=== PATIENT | male | born 1930 | race Caucasian/White ===

== ENCOUNTER 2016-12-23 10:43 | Inpatient (IN) | payer MEDICARE, OTHER ==
[~2016-12-23] VITALS: Ht 157.5 cm; Wt 65.8 kg
[~2016-12-23 10:43] MED LIST: ASPI325T32 PO; BENA40TA54 PO; CRES10 PO; OMEG10006 PO; OMEP40CA6 PO
[2016-12-23] MEDS ORDERED: CEFEPIME 2GM/50 ML (PMX) 50 ML IVPB STA (11:34)
[2016-12-23] MEDS ORDERED: ACETAMINOPHEN 325 MG TAB PO STA (11:34)
[2016-12-23] MEDS ORDERED: SODIUM CHLORIDE 0.9% 1L BAG IV* STA (11:34)
[2016-12-23] MEDS ORDERED: VANCOMYCIN 1 GM (PMX) 250 ML IVPB ONE (12:00)
[2016-12-23] MEDS ORDERED: ASPI-664 PO (12:17)
[2016-12-23] MEDS ORDERED: METF1000 PO (12:18)
[2016-12-23] MEDS ORDERED: GLIP-95 PO (12:18)
[2016-12-23] MEDS ORDERED: BENA40TA41 PO (12:18)
[2016-12-23] MEDS ORDERED: TAMS0.4C2 PO (12:18)
[2016-12-23] MEDS ORDERED: OMEP20CA16 PO (12:19)
[2016-12-23] MEDS ORDERED: MECL12.574 PO (12:19)
[2016-12-23 12:25] LABS: BASOPHILS % 0.3 % (0.0-2.0); EOSINOPHILS # 0.1 10^3/ul (0.0-0.5); EOSINOPHILS % 0.4 % (0.0-7.0); HEMATOCRIT 33.6 % (42.0-52.0); HEMOGLOBIN 10.9 g/dl (14.0-18.0); LYMPHOCYTES # 1.1 10^3/ul (0.8-2.9); LYMPHOCYTES % 9.4 % (15.0-51.0); MEAN CORPUSCULAR HEMOGLOBIN 30.2 pg (29.0-33.0); MEAN CORPUSCULAR HGB CONC 32.4 g/dl (32.0-37.0); MEAN CORPUSCULAR VOLUME 93.1 fl (82.0-101.0); MEAN PLATELET VOLUME 9.5 fl (7.4-10.4); MONOCYTE # 1.1 10^3/ul (0.3-0.9); MONOCYTES % 9.6 % (0.0-11.0); NEUTROPHILS % 79.7 % (39.0-77.0); PLATELET COUNT 271 10^3/UL (140-415); RED BLOOD COUNT 3.61 10^6/ul (4.70-6.10); RED CELL DISTRIBUTION WIDTH 13.9 % (11.5-14.5); WHITE BLOOD COUNT 11.5 10^3/ul (4.8-10.8)
[2016-12-23] MEDS ORDERED: ACETAMINOPHEN 325 MG TAB PO PRN (12:30)
[2016-12-23] MEDS ORDERED: ONDANSETRON 4 MG INJ IV PRN ×2 (12:30→17:00)
--- NOTE | 2016-12-23 12:33 | RADRPT ---
PROCEDURE: Chest Radiograph. CLINICAL INDICATION: Sepsis TECHNIQUE: Single frontal chest radiograph. COMPARISON: None available FINDINGS: The patient is moderately rotated. Heart size is poorly evaluated. The cardiomediastinal silhouett e is grossly within normal limits. Lung volumes are decreased and there is basilar atelectasis. No infiltrate or effusion is seen. The bones are intact. IMPRESSION: 1. Low lung volumes with basilar atelectasis. 2. No evidence of acute cardiopulmonary disease. RPTAT: KK .Mark Vergara MD, MD Date Time Electronically viewed and signed by .Mark Vergara MD, on 12/23/2016 12:33 .B/
[2016-12-23 12:40] LABS: ALANINE AMINOTRANSFERASE 18 IU/L (13-69); ALBUMIN 4.4 g/dl (3.3-4.9); ALBUMIN/GLOBULIN RATIO 1.04; ALKALINE PHOSPHATASE 87 IU/L (42-121); ANION GAP 23 (8-16); ASPARTATE AMINO TRANSFERASE 23 IU/L (15-46); BILIRUBIN,INDIRECT 0.5 mg/dl (0-1.1); BILIRUBIN,TOTAL 0.5 mg/dl (0.2-1.3); BLOOD UREA NITROGEN 32 mg/dl (7-20); CALCIUM 9.5 mg/dl (8.4-10.2); CARBON DIOXIDE 18 mmol/L (21-31); CHLORIDE 105 mmol/L (97-110); CREATININE 1.94 mg/dl (0.61-1.24); GLUCOSE 365 mg/dl (70-220); POTASSIUM 5.1 mmol/L (3.5-5.1); SODIUM 141 mmol/L (135-144); TOTAL PROTEIN 8.6 g/dl (6.1-8.1)
[2016-12-23 12:43] LABS: INR 1.12; PARTIAL THROMBOPLASTIN TIME 28.5 Sec (25.0-35.0); PROTIME 14.4 Sec (12.2-14.2); PT RATIO 1.1
[2016-12-23 12:54] LABS: TROPONIN-I < 0.012 ng/ml (0.00-0.12)
--- NOTE | 2016-12-23 14:23 | ERA ---
ER Documentation Chief Complaint Date/Time DATE: 12/23/16 TIME: 14:19 Chief Complaint Complains of weakness and fever x 2 days HPI Patient is a 86-year-old male with hypertension and diabetes who presents with fever. He was brought in by his . He has chills all over his body and "cannot walk". This has been there for the past 3 days. He went to a clinic 2 weeks ago and was told that he had an infection and was given 2 injections. He has left hand and forearm redness and swelling. He does not know the name of his primary doctor. ROS All systems reviewed and are negative except as per history of present illness. Medications Home Meds Reported Medications Meclizine Hcl* (Antivert*) 12.5 Mg Tab, 12.5 MG PO Q8H Y for NAUSEA AND/OR VOMITING, #30 TAB 12/23/16 Omeprazole* (Omeprazole*) 20 Mg Capsule.dr, 20 MG PO DAILY, #30 CAP 12/23/16 Glipizide* (Glipizide*) 10 Mg Tablet, 10 MG PO BID, TAB 12/23/16 Benazepril Hcl* (Benazepril Hcl*) 40 Mg Tablet, 40 MG PO DAILY, #30 TAB 12/23/16 Tamsulosin Hcl* (Tamsulosin Hcl*) 0.4 Mg Cap.er.24h, 0.4 MG PO HS, CAP 12/23/16 Metformin Hcl* (Metformin Hcl*) 1,000 Mg Tablet, 1000 MG PO WITH BREAKFAST DINNE , #30 TAB 12/23/16 Aspirin (Low Dose Aspirin) 81 Mg Tablet.dr, 81 MG PO DAILY, #30 TAB 12/23/16 Discontinued Reported Medications Aspirin* (Aspirin* EC) 325 Mg Tab, 81 MG PO DAILY 05/28/13 Rosuvastatin Calcium* (Crestor*) 10 Mg Tablet, 10 MG PO HS 05/28/13 Omeprazole* (Omeprazole*) 40 Mg Capsule.dr, 40 MG PO DAILY 05/28/13 [place]-3 Fatty Acids (OMEGA-3) 1,000 Mg Capsule, 1000 MG PO BID 05/28/13 Benazepril Hcl* (Lotensin*) 40 Mg Tablet, 5 MG PO DAILY 05/28/13 Allergies Allergies: Coded Allergies: No Known Allergy (Unverified , 12/23/16) PMhx/Soc History of Surgery: Yes Anesthesia Reaction: No Hx Neurological Disorder: No Hx Respiratory Disorders: No Hx Cardiac Disorders: Yes (HTN) Hx Psychiatric Problems: No Hx Miscellaneous Medical Probl: Yes (ARTHRITIS,HYPERCHOLESTEROLEMIA) Hx Alcohol Use: No Hx Substance Use: No Hx Tobacco Use: No FmHx Family History: diabetes Physical Exam Vitals Vital Signs Date Time Temp Pulse Resp B/P Pulse Ox O2 Delivery O2 Flow Rate FiO2 12/23/16 14:13 101.4 99 19 164/67 99 Room Air 12/23/16 12:07 Nasal Cannula 2 12/23/16 10:57 100.7 111 20 133/68 99 Physical Exam Const: Obvious Reiger's Head: Atraumatic Eyes: Normal Conjunctiva ENT: Normal External Ears, Nose and Mouth. Neck: Full range of motion..~ No meningismus. Resp: Clear to auscultation bilaterally Cardio: Tachycardic rate without murmur Abd: Soft, non tender, non distended. Normal bowel sounds Skin: Cellulitis of the left wrist and forearm without abscess formation Back: No midline or flank tenderness Ext: No cyanosis, or edema Neur: Awake and alert, Tremulousness diffusely with rigors Psych: Normal Mood and Affect Result Diagram: 12/23/16 1205 12/23/16 1205 Results 24 hrs Laboratory Tests Test 12/23/16 12:05 White Blood Count 11.510^3/ul Red Blood Count 3.6110^6/ul Hemoglobin 10.9g/dl Hematocrit 33.6% Mean Corpuscular Volume 93.1fl Mean Corpuscular Hemoglobin 30.2pg Mean Corpuscular Hemoglobin Concent 32.4g/dl Red Cell Distribution Width 13.9% Platelet Count 48407^3/UL Mean Platelet Volume 9.5fl Neutrophils % 79.7% Lymphocytes % 9.4% Monocytes % 9.6% Eosinophils % 0.4% Basophils % 0.3% Nucleated Red Blood Cells % 0.0/100WBC Neutrophils # (Manual) 9.210^3/ul Lymphocytes # 1.110^3/ul Monocytes # 1.110^3/ul Eosinophils # 0.110^3/ul Basophils # 0.010^3/ul Nucleated Red Blood Cells # 0.010^3/ul Prothrombin Time 14.4Sec Prothrombin Time Ratio 1.1 INR International Normalized Ratio 1.12 Activated Partial Thromboplast Time 28.5Sec Sodium Level 141mmol/L Potassium Level 5.1mmol/L Chloride Level 105mmol/L Carbon Dioxide Level 18mmol/L Anion Gap 23 Blood Urea Nitrogen 32mg/dl Creatinine 1.94mg/dl Glucose Level 365mg/dl Lactic Acid Level 4.9mmol/L Calcium Level 9.5mg/dl Total Bilirubin 0.5mg/dl Direct Bilirubin 0.00mg/dl Indirect Bilirubin 0.5mg/dl Aspartate Amino Transf (AST/SGOT) 23IU/L Alanine Aminotransferase (ALT/SGPT) 18IU/L Alkaline Phosphatase 87IU/L Troponin I < 0.012ng/ml Total Protein 8.6g/dl Albumin 4.4g/dl Globulin 4.20g/dl Albumin/Globulin Ratio 1.04 Current Medications Medications (Trade) Dose Ordered Sig/Chris Route PRN Reason Start Time Stop Time Status Last Admin Dose Admin Sodium Chloride (NS) 1,800 ml BOLUS OVER 2 HOURS STAT IV* 12/23/16 11:34 12/23/16 11:35 DC 12/23/16 12:27 Acetaminophen 650 mg 650 mg ONCE STAT PO 12/23/16 11:34 12/23/16 11:35 DC 12/23/16 12:24 Cefepime HCl 50 ml @ 100 mls/hr ONCE STAT IVPB 12/23/16 11:34 12/23/16 12:03 DC 12/23/16 12:24 Vancomycin HCl (Vancocin) 250 ml @ 125 mls/hr ONCE ONCE IVPB 12/23/16 12:00 12/23/16 13:59 DC 12/23/16 12:42 Ondansetron HCl (Zofran Inj) 4 mg BRIDGE ORDER PRN IV NAUSEA AND/OR VOMITING 12/23/16 12:30 12/24/16 12:29 Acetaminophen (Tylenol Tab) 650 mg ER BRIDGE PRN PO MILD PAIN/FEVER 12/23/16 12:30 12/24/16 12:29 Procedures/MDM EKG read by me: Rate/Rhythm: Tachycardia at a rate of 105 Intervals: Normal Impression: Tachycardia without ST elevations Chest x-ray shows no pneumonia or pneumothorax per radiology. Admit MDM: Patient's infectious symptoms have not stabilized and the patient is at risk of rapid decompensation. The patient will be admitted for careful hydration, antibiotic therapy, and infectious source control. Severe Sepsis criteria: Infectious source: Cellulitis End organ damage indicated by: Lactate greater than 2 Sepsis Management: Time of recognition of sepsis: Upon arrival Within 3 hours of recognition: Blood cultures x 2 before broad-spectrum antibiotics: [Yes] 30 ml/kg NS bolus [Completed] Initial lactate 4.9 Repeat lactate pending Time of recognition of septic shock: 1205 Septic Shock Assessment: Any lactic acid > 4.0 yes Persistent hypotension (SBP < 90 or 40 mmHg drop, MAP < 65) despite 30 mL/kg IV fluid bolus [No] Volume Re-assessment for Septic Shock (post 30 ml/kg bolus): Temp 101.4, BP 164/67, HR 99, RR 19, Pox 99% Heart [Regular rate & rhythm] Lungs [No crackles] Skin redness left wrist and forearm Cap Refill [Less than 2 seconds] Peripheral pulses [Radially present] Persistent Hypotension Treatment: Comfort care [No] Central line [Not Required] Vasopressor started [Not required] I considered further perfusion assessment with CVP measurement, SCVO2, bedside ultrasound volume assessment, passive leg raise, trial of further fluid bolus. And proceeded with [30 ml/kg fluid bolus of NSS, broad spectrum antibiotics, and admission.] Accepting Care Team Current data and ongoing care discussed. Admitting Physician: Dr. Pollack Asphalt Paving Supervisor(s): [None] Outstanding Data: Culture results and repeat lactic acid Critical Care: Critical care time 35 minutes excluding all billable procedures Emergent fluid management while maintaining close respiratory support. Provision of immediate and broad-spectrum antibiotic therapy. Simultaneous assessment for possible sources in order to direct targeted therapy. Consideration for invasive and chemical support to prevent cardiopulmonary collapse. Departure Diagnosis: Primary Impression: Septic shock Additional Impressions: Acute weakness Cellulitis Qualified Code: L03.114 - Cellulitis of left upper extremity Sepsis Qualified Code: A41.9 - Sepsis, due to unspecified organism Condition: BRETT Bear MD Dec 23, 2016 14:23
[2016-12-23] MEDS ORDERED: IBUPROFEN 800 MG TAB PO ONE (14:30)
[2016-12-23 15:46] LABS: ADD UMIC YES; UR ASCORBIC ACID NEGATIVE (NEGATIVE); UR BACTERIA FEW /HPF (NONE SEEN); UR BILIRUBIN (Dip) NEGATIVE (NEGATIVE); UR BLOOD (Dip) 1+ mg/dL (NEGATIVE); UR CLARITY CLEAR (CLEAR); UR COLOR YELLOW (YELLOW); UR GLUCOSE (Dip) 2+ mg/dL (NEGATIVE); UR KETONES (Dip) NEGATIVE (NEGATIVE); UR LEUKOCYTE ESTERASE (Dip) NEGATIVE Leu/ul (NEGATIVE); UR NITRITE (Dip) NEGATIVE (NEGATIVE); UR RBC 2 /HPF (0-5); UR SPECIFIC GRAVITY (Dip) 1.014 (1.003-1.030); UR TOTAL PROTEIN (Dip) NEGATIVE (NEGATIVE); UR UROBILINOGEN (Dip) NEGATIVE (NEGATIVE)
--- NOTE | 2016-12-23 16:48 | HP ---
Date/Time of Note Date/Time of Note DATE: 12/23/16 TIME: 16:43 Assessment/Plan VTE Prophylaxis VTE Prophylaxis Intervention: SCD's Assessment/Plan Chief Complaint/Hosp Course 1. Sepsis with lactic acidosis secondary to cellulitis of the left wrist Vancomycin IV ID consultation 2. CKD Monitor 3. Hypertension Resume home meds 4. Diabetes Scheduled insulin and sliding scale 5. Anemia-likely secondary to anemia of chronic disease Prophylaxis: SCDs Problems: HPI/ROS Admit Date/Time Admit Date/Time December 23, 2016 Hx of Present Illness Patient is an 86-year-old male with history of hypertension and non-insulin- requiring diabetes. He does have a history of cellulitis in the right elbow. Patient presents with 2 weeks of worsening swelling and redness in the left wrist. Patient is a poor historian reportedly had to injections in his legs unclear what type. Patient reports pain in the wrist area, he has no complaints this time. Patient denies any IV drug use. ROS Constitutional: improved, no complaints Eyes: no complaints ENT: no complaints Respiratory: no complaints Cardiovascular: no complaints Gastrointestinal: no complaints Genitourinary: no complaints Musculoskeletal: restricted range of motion, swelling (Pain in the left wrist) Skin: no complaints Neurologic: no complaints Endocrine: no complaints Lymphatic: no complaints Psychological: nl mood/affect, no complaints Immunologic: no complaints PMH/Family/Social Past Medical History Medical History: diabetes, hypertension Family History Significant Family History: no pertinent family hx Social History Alcohol Use: none Smoking Status: Never smoker Drug Use: none Exam/Review of Systems Vital Signs Vitals Vital Signs Date Time Temp Pulse Resp B/P Pulse Ox O2 Delivery O2 Flow Rate FiO2 12/23/16 14:13 101.4 99 19 164/67 99 Room Air 12/23/16 12:07 2 Exam Constitutional: alert Head: normocephalic Respiratory: clear to auscultation Cardiovascular: regular rate and rhythm Gastrointestinal: soft, No distended Musculoskeletal: No nl extremities to inspection (Erythema with swelling in the left wrist) Labs Result Diagram: 12/23/16 1205 12/23/16 1205 JANETTE PÉREZ Dec 23, 2016 16:48
[2016-12-23] MEDS ORDERED: VANCOMYCIN IV PER PHARMACY XX SCH (17:00)
[2016-12-23] MEDS ORDERED: NACL 0.9% 3 ML SYG IV SCH (17:00)
[2016-12-23] MEDS ORDERED: ZOLPIDEM 5 MG TAB PO PRN (17:00)
[2016-12-23] MEDS ORDERED: MAGNESIUM HYDROXIDE 30ML CUP PO PRN (17:00)
[2016-12-23] MEDS ORDERED: DOCUSATE SODIUM 100 MG CAP PO PRN (17:00)
[2016-12-23] MEDS: SOD CHLORIDE 0.45% 1,000 ML IV SCH (17:17)
[2016-12-23] MEDS: INSULIN ASPART [NOVOLOG] 3 ML PEN SC SCH ×3 (18:30→21:00)
[2016-12-23] MEDS ORDERED: INSULIN GLARGINE [LANtus] 3 ML PEN SC SCH (21:00)
[2016-12-23 21:01] VITALS: TEMP 98.8
[2016-12-23 22:00] VITALS: BP 189/73; RESP 16
[2016-12-23] MEDS: TAMSULOSIN (SR) 0.4 MG CAP PO SCH (22:56)
[2016-12-23 23:00] VITALS: BP 189/73; PULSE 69; RESP 16
[2016-12-23 23:30] VITALS: BP 158/77; PULSE 79
[2016-12-24 01:23] VITALS: Ht 157.5 cm; Wt 65.8 kg
[2016-12-24] MEDS ORDERED: ACCU-CHEK XX SCH (02:00)
[2016-12-24] MEDS: ACCU-CHEK XX SCH (02:00)
[2016-12-24 02:05] VITALS: BP 134/62; RESP 16
[2016-12-24] MEDS: SOD CHLORIDE 0.45% 1,000 ML IV SCH ×2 (03:32→13:32)
[2016-12-24 05:23] LABS: BASOPHILS % 0.4 % (0.0-2.0); EOSINOPHILS # 0.4 10^3/ul (0.0-0.5); EOSINOPHILS % 5.3 % (0.0-7.0); HEMATOCRIT 26.5 % (42.0-52.0); HEMOGLOBIN 8.6 g/dl (14.0-18.0); LYMPHOCYTES # 1.3 10^3/ul (0.8-2.9); MEAN CORPUSCULAR HEMOGLOBIN 29.7 pg (29.0-33.0); MEAN CORPUSCULAR HGB CONC 32.5 g/dl (32.0-37.0); MEAN CORPUSCULAR VOLUME 91.4 fl (82.0-101.0); MEAN PLATELET VOLUME 9.7 fl (7.4-10.4); MONOCYTE # 0.9 10^3/ul (0.3-0.9); MONOCYTES % 12.8 % (0.0-11.0); NEUTROPHILS % 63.2 % (39.0-77.0); PLATELET COUNT 173 10^3/UL (140-415); RED CELL DISTRIBUTION WIDTH 13.8 % (11.5-14.5); WHITE BLOOD COUNT 7.1 10^3/ul (4.8-10.8)
[2016-12-24 06:02] LABS: CHOL/HDL RATIO 3.3 RATIO; CREATININE 1.57 mg/dl (0.61-1.24); MAGNESIUM 1.8 mg/dl (1.7-2.5); PHOSPHORUS 3.4 mg/dl (2.5-4.9); POTASSIUM 4.7 mmol/L (3.5-5.1)
[2016-12-24] MEDS: PANTOPRAZOLE (EC) 40 MG TAB PO SCH (06:27)
[2016-12-24 07:59] VITALS: BP 144/64; RESP 18
[2016-12-24] MEDS: INSULIN ASPART [NOVOLOG] 3 ML PEN SC SCH ×6 (08:00→21:00)
[2016-12-24] MEDS: BENAZEPRIL 40 MG TAB PO SCH (08:48)
--- NOTE | 2016-12-24 13:06 | PN ---
Date/Time of Note Date/Time of Note DATE: 12/24/16 TIME: 13:03 Assessment/Plan VTE Prophylaxis VTE Prophylaxis Intervention: SCD's Lines/Catheters IV [facility]from [facility] [place] Urinary Cath still in place: No Assessment/Plan Chief Complaint/Hosp Course 1. Sepsis with lactic acidosis secondary to cellulitis of the left wrist- improved Vancomycin IV ID consultation obtained 2. CKD Monitor 3. Hypertension Resume home meds 4. Pre-diabetes -A1c 6.2 -Lantus nightly and sliding scale 5. Anemia-likely secondary to anemia of chronic disease Prophylaxis: SCDs Problems: Subjective 24 Hr Interval Summary Constitutional: disoriented, no complaints Exam/Review of Systems Vital Signs Vitals Vital Signs Date Time Temp Pulse Resp B/P Pulse Ox O2 Delivery O2 Flow Rate FiO2 12/24/16 07:59 97.4 80 18 144/64 96 12/23/16 23:00 Room Air 12/23/16 12:07 2 Intake and Output 12/23/16 12/23/16 12/24/16 15:00 23:00 07:00 Intake Total 300 ml 1800 ml 1680 ml Balance 300 ml 1800 ml 1680 ml Exam Psych: confusion Respiratory: clear to auscultation Cardiovascular: regular rate and rhythm Gastrointestinal: soft, No distended Musculoskeletal: nl extremities to inspection Results Result Diagram: 12/24/16 0500 12/24/16 0500 Results 24 hrs Laboratory Tests Test 12/23/16 14:10 12/23/16 15:25 12/23/16 16:10 12/23/16 20:42 Lactic Acid Level 3.0 *H 2.7 *H Urine Color YELLOW Urine Clarity CLEAR Urine pH 5.0 Urine Specific [place] 1.014 Urine Ketones NEGATIVE Urine Nitrite NEGATIVE Urine Bilirubin NEGATIVE Urine Urobilinogen NEGATIVE Urine Leukocyte Esterase NEGATIVE Urine Microscopic RBC 2 Urine Microscopic WBC 1 Urine Bacteria FEW A Urine Hemoglobin 1+ H Urine Glucose 2+ H Urine Total Protein NEGATIVE Bedside Glucose 66 L Test 12/23/16 21:26 12/23/16 22:40 12/23/16 23:04 12/23/16 23:21 Bedside Glucose 74 64 L 83 91 Test 12/24/16 00:01 12/24/16 02:32 12/24/16 05:00 12/24/16 06:37 Bedside Glucose 100 97 75 White Blood Count 7.1 # Red Blood Count 2.90 L Hemoglobin 8.6 #L Hematocrit 26.5 #L Mean Corpuscular Volume 91.4 Mean Corpuscular Hemoglobin 29.7 Mean Corpuscular Hemoglobin Concent 32.5 Red Cell Distribution Width 13.8 Platelet Count 173 # Mean Platelet Volume 9.7 Neutrophils % 63.2 Lymphocytes % 18.0 Monocytes % 12.8 H Eosinophils % 5.3 Basophils % 0.4 Nucleated Red Blood Cells % 0.0 Neutrophils # (Manual) 4.5 Lymphocytes # 1.3 Monocytes # 0.9 Eosinophils # 0.4 Basophils # 0.0 Nucleated Red Blood Cells # 0.0 Sodium Level 140 Potassium Level 4.7 Chloride Level 113 H Carbon Dioxide Level 17 L Anion Gap 15 # Blood Urea Nitrogen 26 H Creatinine 1.57 H Glucose Level 73 # Hemoglobin A1c 6.2 H Calcium Level 8.0 L Phosphorus Level 3.4 Magnesium Level 1.8 Triglycerides Level 162 H Cholesterol Level 109 LDL Cholesterol, Calculated 44 HDL Cholesterol 33 Cholesterol/HDL Ratio 3.3 Test 12/24/16 06:53 12/24/16 07:59 12/24/16 11:55 Bedside Glucose 101 136 106 Medications Medications Current Medications Sodium Chloride (/2 NS) 1,000 ml @ 100 mls/hr Q10H IV Last administered on t 03:32; Admin Dose 100 MLS/HR; Start 12/23/16 at 16:48; Stop 12/24/16 at 14: 30 Ondansetron HCl (Zofran Inj) 4 mg Q6H PRN IV NAUSEA AND/OR VOMITING; Start 12/23 at 17:00 Acetaminophen (Tylenol Tab) 650 mg Q6H PRN PO PAIN LEVEL 1-3 OR FEVER; Start at 17:00 Acetaminophen/ Hydrocodone Bitart ([place] (5/325)) 1 tab Q6H PRN PO MODERATE PAIN LEVEL 4-6; Start 12/23/16 at 17:00 Morphine Sulfate (morphine) 2 mg Q4H PRN IV SEVERE PAIN LEVEL 7-10; Start at 17:00 Docusate Sodium (Colace) 100 mg Q12H PRN PO CONSTIPATION; Start 12/23/16 at 17: 00 Magnesium Hydroxide (Milk Of Mag) 30 ml DAILY PRN PO CONSTIPATION; Start at 17:00 Zolpidem Tartrate (Ambien) 5 mg QHS PRN PO SLEEP; Start 12/23/16 at 17:00 Benazepril HCl (Lotensin) 40 mg DAILY PO Last administered on 12/24/16 08:48; Admin Dose 40 MG; Start 12/24/16 at 09:00 Tamsulosin HCl (Flomax) 0.4 mg HS PO Last administered on 12/23/16 22:56; Admin Dose 0.4 MG; Start 12/23/16 at 21:00 Pantoprazole (Protonix Tab) 40 mg DAILY@06 PO Last administered on 12/24/16 06: 27; Admin Dose 40 MG; Start 12/24/16 at 06:00 Diagnostic Test (Pha) (Accu-Chek) 1 ea 02 XX ; Start 12/24/16 at 02:00 Insulin Glargine 12 unit 12 unit QPM SC ; Start 12/23/16 at 21:00 Vancomycin HCl (Vancocin) 100 ml @ 100 mls/hr Q24H IVPB ; Start 12/24/16 at 13: 00 JANETTE PÉREZ Dec 24, 2016 13:06
[2016-12-24] MEDS: VANCOMYCIN 500MG/NS (PMX) 100 ML IVPB SCH (13:32)
[2016-12-24 14:30] VITALS: BP 138/70; RESP 18
[2016-12-24] MEDS: ACETAMINOPHEN 325 MG TAB PO PRN (17:19)
[2016-12-24] MEDS ORDERED: GLUCOSE GEL 15 GRAM TUBE BUCCAL PRN (20:00)
[2016-12-24] MEDS ORDERED: GLUCAGON 1 MG INJ IM PRN (20:00)
[2016-12-24] MEDS ORDERED: DEXTROSE 50% 50 ML SYRINGE IV PRN ×2 (20:00)
[2016-12-24] MEDS ORDERED: GLUCOSE GEL 15 GRAM TUBE PO PRN ×2 (20:00)
[2016-12-24 20:52] VITALS: BP 176/73; RESP 18
[2016-12-24] MEDS: hydrALAzine 20 MG INJ IV PRN (21:12)
[2016-12-24] MEDS: TAMSULOSIN (SR) 0.4 MG CAP PO SCH (21:15)
[2016-12-24] MEDS: INSULIN GLARGINE [LANtus] 3 ML PEN SC SCH (21:19)
[2016-12-24 23:05] VITALS: BP 147/70; PULSE 75
[2016-12-24] MEDS: HYDROCODONE/APAP (5/325) TAB PO PRN (23:08)
[2016-12-25] MEDS: ACCU-CHEK XX SCH (01:47)
[2016-12-25 03:47] VITALS: BP 166/75; RESP 18
[2016-12-25] MEDS: HYDROCODONE/APAP (5/325) TAB PO PRN ×3 (05:01→20:28)
[2016-12-25] MEDS: PANTOPRAZOLE (EC) 40 MG TAB PO SCH (05:02)
[2016-12-25 05:32] LABS: BASOPHILS % 0.4 % (0.0-2.0); EOSINOPHILS # 0.4 10^3/ul (0.0-0.5); EOSINOPHILS % 5.2 % (0.0-7.0); HEMOGLOBIN 9.6 g/dl (14.0-18.0); LYMPHOCYTES # 1.7 10^3/ul (0.8-2.9); LYMPHOCYTES % 20.1 % (15.0-51.0); MEAN CORPUSCULAR HEMOGLOBIN 29.1 pg (29.0-33.0); MEAN CORPUSCULAR HGB CONC 33.1 g/dl (32.0-37.0); MEAN CORPUSCULAR VOLUME 87.9 fl (82.0-101.0); MEAN PLATELET VOLUME 9.9 fl (7.4-10.4); MONOCYTES % 11.7 % (0.0-11.0); NEUTROPHILS % 62.2 % (39.0-77.0); PLATELET COUNT 234 10^3/UL (140-415); RED CELL DISTRIBUTION WIDTH 13.8 % (11.5-14.5); WHITE BLOOD COUNT 8.2 10^3/ul (4.8-10.8)
[2016-12-25 05:57] LABS: CALCIUM 8.8 mg/dl (8.4-10.2); CREATININE 1.42 mg/dl (0.61-1.24); POTASSIUM 4.5 mmol/L (3.5-5.1)
[2016-12-25 06:06] VITALS: BP 138/66; PULSE 80
[2016-12-25 07:59] VITALS: BP 145/64; RESP 18
[2016-12-25] MEDS: INSULIN ASPART [NOVOLOG] 3 ML PEN SC SCH ×4 (08:47→20:24)
[2016-12-25] MEDS: BENAZEPRIL 40 MG TAB PO SCH (08:49)
[2016-12-25] MEDS: VANCOMYCIN 500MG/NS (PMX) 100 ML IVPB SCH (12:08)
[2016-12-25 14:30] VITALS: BP 140/80; RESP 16
[2016-12-25] MEDS: SOD CHLORIDE 0.45% 1,000 ML IV SCH (15:42)
--- NOTE | 2016-12-25 18:52 | PN ---
Date/Time of Note Date/Time of Note DATE: 12/25/16 TIME: 18:50 Assessment/Plan VTE Prophylaxis VTE Prophylaxis Intervention: SCD's Lines/Catheters IV Catheter Type (from Nrs): Peripheral IV Urinary Cath still in place: No Assessment/Plan Chief Complaint/Hosp Course 1. Sepsis with lactic acidosis secondary to cellulitis of the left wrist- improving Vancomycin IV ID consultation obtained and are aware Lactic acid has normalized 2. CKD Monitor 3. Hypertension Resume home meds 4. Pre-diabetes -A1c 6.2 -Lantus nightly and sliding scale 5. Anemia-likely secondary to anemia of chronic disease Prophylaxis: SCDs Discharge planning: Anticipate DC in 1-2 days Problems: Subjective 24 Hr Interval Summary Constitutional: no complaints Exam/Review of Systems Vital Signs Vitals Vital Signs Date Time Temp Pulse Resp B/P Pulse Ox O2 Delivery O2 Flow Rate FiO2 12/25/16 14:30 97.5 85 16 140/80 94 12/23/16 23:00 Room Air 12/23/16 12:07 2 Intake and Output 12/24/16 12/24/16 12/25/16 15:00 23:00 07:00 Intake Total 950 ml 1080 ml 340 ml Balance 950 ml 1080 ml 340 ml Exam Constitutional: alert Respiratory: clear to auscultation Cardiovascular: regular rate and rhythm Gastrointestinal: soft, No distended Musculoskeletal: No nl extremities to inspection Results Result Diagram: 12/25/16 0448 12/25/16 0447 Results 24 hrs Laboratory Tests Test 12/24/16 21:17 12/25/16 04:47 12/25/16 04:48 12/25/16 07:57 Bedside Glucose 105 142 Sodium Level 137 Potassium Level 4.5 Chloride Level 109 Carbon Dioxide Level 20 L Anion Gap 13 Blood Urea Nitrogen 22 H Creatinine 1.42 H Glucose Level 133 # Lactic Acid Level 1.1 Calcium Level 8.8 White Blood Count 8.2 Red Blood Count 3.30 L Hemoglobin 9.6 L Hematocrit 29.0 L Mean Corpuscular Volume 87.9 Mean Corpuscular Hemoglobin 29.1 Mean Corpuscular Hemoglobin Concent 33.1 Red Cell Distribution Width 13.8 Platelet Count 234 # Mean Platelet Volume 9.9 Neutrophils % 62.2 Lymphocytes % 20.1 Monocytes % 11.7 H Eosinophils % 5.2 Basophils % 0.4 Nucleated Red Blood Cells % 0.0 Neutrophils # (Manual) 5.1 Lymphocytes # 1.7 Monocytes # 1.0 H Eosinophils # 0.4 Basophils # 0.0 Nucleated Red Blood Cells # 0.0 Test 12/25/16 11:47 12/25/16 17:42 Bedside Glucose 156 140 Medications Medications Current Medications Ondansetron HCl (Zofran Inj) 4 mg Q6H PRN IV NAUSEA AND/OR VOMITING; Start 12/23 at 17:00 Acetaminophen (Tylenol Tab) 650 mg Q6H PRN PO PAIN LEVEL 1-3 OR FEVER Last administered on 12/24/16 17:19; Admin Dose 650 MG; Start 12/23/16 at 17:00 Acetaminophen/ Hydrocodone Bitart ([place] (5/325)) 1 tab Q6H PRN PO MODERATE PAIN LEVEL 4-6 Last administered on 12/25/16 12:05; Admin Dose 1 TAB; Start 12/23 at 17:00 Morphine Sulfate (morphine) 2 mg Q4H PRN IV SEVERE PAIN LEVEL 7-10; Start at 17:00 Docusate Sodium (Colace) 100 mg Q12H PRN PO CONSTIPATION; Start 12/23/16 at 17: 00 Magnesium Hydroxide (Milk Of Mag) 30 ml DAILY PRN PO CONSTIPATION; Start at 17:00 Zolpidem Tartrate (Ambien) 5 mg QHS PRN PO SLEEP Last administered on 12/25/16 01:46; Admin Dose 5 MG; Start 12/23/16 at 17:00 Benazepril HCl (Lotensin) 40 mg DAILY PO Last administered on 12/25/16 08:49; Admin Dose 40 MG; Start 12/24/16 at 09:00 Tamsulosin HCl (Flomax) 0.4 mg HS PO Last administered on 12/24/16 21:15; Admin Dose 0.4 MG; Start 12/23/16 at 21:00 Pantoprazole (Protonix Tab) 40 mg DAILY@06 PO Last administered on 12/25/16 05: 02; Admin Dose 40 MG; Start 12/24/16 at 06:00 Diagnostic Test (Pha) 1 ea 1 ea 02 XX ; Start 12/24/16 at 02:00 Vancomycin HCl (Vancocin) 100 ml @ 100 mls/hr Q24H IVPB Last administered on 12:08; Admin Dose 100 MLS/HR; Start 12/24/16 at 13:00 Insulin Glargine (Lantus) 10 unit QPM SC Last administered on 12/24/16 21:19; Admin Dose 10 UNIT; Start 12/24/16 at 21:00 Miscellaneous Information 1 ea NOTE XX ; Start 12/24/16 at 20:00 Glucose (Glutose) 15 gm Q15M PRN PO DECREASED GLUCOSE; Start 12/24/16 at 20:00 Glucose (Glutose) 22.5 gm Q15M PRN PO DECREASED GLUCOSE; Start 12/24/16 at 20:00 Dextrose (D50w Syringe) 25 ml Q15M PRN IV DECREASED GLUCOSE; Start 12/24/16 at 20:00 Dextrose (D50w Syringe) 50 ml Q15M PRN IV DECREASED GLUCOSE; Start 12/24/16 at 20:00 Glucagon (Glucagen) 1 mg Q15M PRN IM DECREASED GLUCOSE; Start 12/24/16 at 20:00 Glucose (Glutose) 15 gm Q15M PRN BUCCAL DECREASED GLUCOSE; Start 12/24/16 at 20: 00 Hydralazine HCl (Apresoline) 10 mg Q4H PRN IV ELEVATED BLOOD PRESSURE Last administered on 12/24/16 21:12; Admin Dose 10 MG; Start 12/24/16 at 21:30 Miscellaneous Information VANCOMYCIN TROUGH 12/26 AT 1200 ONCE ONCE XX ; Start at 12:00; Stop 12/26/16 at 12:01 Sodium Chloride (1/2 NS) 1,000 ml @ 75 mls/hr [id number] IV Last administered on 12/25/16 15:42; Admin Dose 75 MLS/HR; Start 12/25/16 at 15:00 JANETTE PÉREZ Dec 25, 2016 18:52
[2016-12-25 20:00] VITALS: BP 163/75; RESP 18
[2016-12-25] MEDS ORDERED: CEFTRIAXONE 1,000 MG in SOD CHLORIDE 0.9% 50 ML IVPB SCH (20:00)
[2016-12-25] MEDS: TAMSULOSIN (SR) 0.4 MG CAP PO SCH (20:23)
[2016-12-25] MEDS: INSULIN GLARGINE [LANtus] 3 ML PEN SC SCH (20:24)
[2016-12-25] MEDS: hydrALAzine 20 MG INJ IV PRN (20:25)
[2016-12-25 20:51] VITALS: BP 136/61
[2016-12-25] MEDS: CLINDAMYCIN 900 MG/D5W (PMX) 50 ML IVPB SCH (21:42)
[2016-12-25] MEDS: CEFTRIAXONE 1 GM/50 ML (PMX) 50 ML IVPB SCH (22:46)
[2016-12-26 02:00] VITALS: BP 114/61; RESP 17
[2016-12-26] MEDS: ACCU-CHEK XX SCH (02:00)
[2016-12-26] MEDS: CLINDAMYCIN 900 MG/D5W (PMX) 50 ML IVPB SCH ×3 (04:44→20:45)
[2016-12-26] MEDS: SOD CHLORIDE 0.45% 1,000 ML IV SCH (04:48)
[2016-12-26] MEDS: HYDROCODONE/APAP (5/325) TAB PO PRN ×2 (04:48→15:12)
[2016-12-26] MEDS: PANTOPRAZOLE (EC) 40 MG TAB PO SCH (05:28)
[2016-12-26 05:57] LABS: BASOPHILS % 0.5 % (0.0-2.0); EOSINOPHILS # 0.4 10^3/ul (0.0-0.5); EOSINOPHILS % 5.5 % (0.0-7.0); HEMATOCRIT 27.1 % (42.0-52.0); LYMPHOCYTES # 1.5 10^3/ul (0.8-2.9); LYMPHOCYTES % 23.6 % (15.0-51.0); MEAN CORPUSCULAR HEMOGLOBIN 29.8 pg (29.0-33.0); MEAN CORPUSCULAR HGB CONC 33.2 g/dl (32.0-37.0); MEAN CORPUSCULAR VOLUME 89.7 fl (82.0-101.0); MONOCYTE # 0.6 10^3/ul (0.3-0.9); MONOCYTES % 9.4 % (0.0-11.0); NEUTROPHILS % 60.5 % (39.0-77.0); PLATELET COUNT 215 10^3/UL (140-415); RED BLOOD COUNT 3.02 10^6/ul (4.70-6.10); RED CELL DISTRIBUTION WIDTH 13.7 % (11.5-14.5); WHITE BLOOD COUNT 6.4 10^3/ul (4.8-10.8)
[2016-12-26 06:25] LABS: CALCIUM 8.4 mg/dl (8.4-10.2); CREATININE 1.45 mg/dl (0.61-1.24); POTASSIUM 4.7 mmol/L (3.5-5.1)
[2016-12-26] MEDS: INSULIN ASPART [NOVOLOG] 3 ML PEN SC SCH ×4 (07:58→20:53)
[2016-12-26 08:00] VITALS: BP 146/63; RESP 20
[2016-12-26] MEDS: BENAZEPRIL 40 MG TAB PO SCH (08:04)
[2016-12-26 14:00] VITALS: BP 138/60; RESP 19
--- NOTE | 2016-12-26 15:50 | PN ---
Date/Time of Note Date/Time of Note DATE: 12/26/16 TIME: 15:45 Assessment/Plan VTE Prophylaxis VTE Prophylaxis Intervention: LMWH Lines/Catheters IV Catheter Type (from Nrsg): Peripheral IV Urinary Cath still in place: No Assessment/Plan Chief Complaint/Hosp Course 86 yo male with hypertension, cogntiive impairment presenting with pain and swelling of LUE. Being treated for presumed cellulitis, though exact dx is not clear - Continue abx for now - MRI pending to assess for MSK injury, fluid collection - Consider rhematologic process Cognitive impairment - TSH, B12 labs Hypertension - Continue home meds Discharge to home/self care PT/OT Problems: Subjective 24 Hr Interval Summary Free Text/Dictation Patient has been treated wt IV abx for presumed cellulitis, pending MRI of LUE Says pain slighlyt improved but still present Has swelling in wrist, extends to medial elbow on left Exam/Review of Systems Vital Signs Vitals Vital Signs Date Time Temp Pulse Resp B/P Pulse Ox O2 Delivery O2 Flow Rate FiO2 12/26/16 08:00 98.1 68 20 146/63 99 12/23/16 23:00 Room Air 12/23/16 12:07 2 Intake and Output 12/25/16 12/25/16 12/26/16 15:00 23:00 07:00 Intake Total 100 ml 1440 ml 1250 ml Balance 100 ml 1440 ml 1250 ml Exam Well appearing, in NAD LUE with swelling and mild pain of wrist joint w effusion. Some erythmea present. No warmth. Tender to elbow wheret here is swelling of medial joint aspect Results Result Diagram: 12/26/16 0506 12/26/16 0506 Results 24 hrs Laboratory Tests Test 12/25/16 17:42 12/25/16 20:22 12/26/16 05:06 12/26/16 07:57 Bedside Glucose 140 152 118 White Blood Count 6.4 # Red Blood Count 3.02 L Hemoglobin 9.0 L Hematocrit 27.1 L Mean Corpuscular Volume 89.7 Mean Corpuscular Hemoglobin 29.8 Mean Corpuscular Hemoglobin Concent 33.2 Red Cell Distribution Width 13.7 Platelet Count 215 Mean Platelet Volume 10.0 Neutrophils % 60.5 Lymphocytes % 23.6 Monocytes % 9.4 Eosinophils % 5.5 Basophils % 0.5 Nucleated Red Blood Cells % 0.0 Neutrophils # (Manual) 3.9 Lymphocytes # 1.5 Monocytes # 0.6 Eosinophils # 0.4 Basophils # 0.0 Nucleated Red Blood Cells # 0.0 Sodium Level 135 Potassium Level 4.7 Chloride Level 106 Carbon Dioxide Level 20 L Anion Gap 14 Blood Urea Nitrogen 29 H Creatinine 1.45 H Glucose Level 120 Calcium Level 8.4 Test 12/26/16 11:28 Bedside Glucose 108 Medications Medications Current Medications Ondansetron HCl (Zofran Inj) 4 mg Q6H PRN IV NAUSEA AND/OR VOMITING; Start 12/23 at 17:00 Acetaminophen (Tylenol Tab) 650 mg Q6H PRN PO PAIN LEVEL 1-3 OR FEVER Last administered on 12/24/16 17:19; Admin Dose 650 MG; Start 12/23/16 at 17:00 Acetaminophen/ Hydrocodone Bitart ([place] (5/325)) 1 tab Q6H PRN PO MODERATE PAIN LEVEL 4-6 Last administered on 12/26/16 15:12; Admin Dose 1 TAB; Start 12/23 at 17:00 Morphine Sulfate (morphine) 2 mg Q4H PRN IV SEVERE PAIN LEVEL 7-10; Start at 17:00 Docusate Sodium (Colace) 100 mg Q12H PRN PO CONSTIPATION; Start 12/23/16 at 17: 00 Magnesium Hydroxide (Milk Of Mag) 30 ml DAILY PRN PO CONSTIPATION; Start at 17:00 Zolpidem Tartrate (Ambien) 5 mg QHS PRN PO SLEEP Last administered on 12/25/16 01:46; Admin Dose 5 MG; Start 12/23/16 at 17:00 Benazepril HCl (Lotensin) 40 mg DAILY PO Last administered on 12/26/16 08:04; Admin Dose 40 MG; Start 12/24/16 at 09:00 Tamsulosin HCl (Flomax) 0.4 mg HS PO Last administered on 12/25/16 20:23; Admin Dose 0.4 MG; Start 12/23/16 at 21:00 Pantoprazole (Protonix Tab) 40 mg DAILY@06 PO Last administered on 12/26/16 05: 28; Admin Dose 40 MG; Start 12/24/16 at 06:00 Diagnostic Test (Pha) (Accu-Chek) 1 ea 02 XX ; Start 12/24/16 at 02:00 Insulin Glargine (Lantus) 10 unit QPM SC Last administered on 12/25/16 20:24; Admin Dose 10 UNIT; Start 12/24/16 at 21:00 Miscellaneous Information 1 ea NOTE XX ; Start 12/24/16 at 20:00 Glucose (Glutose) 15 gm Q15M PRN PO DECREASED GLUCOSE; Start 12/24/16 at 20:00 Glucose (Glutose) 22.5 gm Q15M PRN PO DECREASED GLUCOSE; Start 12/24/16 at 20:00 Dextrose (D50w Syringe) 25 ml Q15M PRN IV DECREASED GLUCOSE; Start 12/24/16 at 20:00 Dextrose (D50w Syringe) 50 ml Q15M PRN IV DECREASED GLUCOSE; Start 12/24/16 at 20:00 Glucagon (Glucagen) 1 mg Q15M PRN IM DECREASED GLUCOSE; Start 12/24/16 at 20:00 Glucose 15 gm 15 gm Q15M PRN BUCCAL DECREASED GLUCOSE; Start 12/24/16 at 20:00 Clindamycin HCl/ Dextrose 50 ml @ 50 mls/hr Q8H IVPB Last administered on 11:28; Admin Dose 50 MLS/HR; Start 12/25/16 at 20:30; Stop 01/01/17 at 21:00 Ceftriaxone Sodium (Rocephin) 50 ml @ 100 mls/hr Q24H IVPB Last administered on 12/25/16 22:46; Admin Dose 100 MLS/HR; Start 12/25/16 at 21:30; Stop 01/01/17 at 12:00 EDER STANFORD MD Dec 26, 2016 15:50
--- NOTE | 2016-12-26 19:54 | CONS ---
Date/Time of Note Date/Time of Note DATE: 12/26/16 TIME: 19:47 Assessment/Plan Assessment/Plan Chief Complaint/Hosp Course ID PROGRESS NOTE CURRENT ABX: Clindamycin #2 + Ceftriaxone #2 s/p Vanco 24H INTERVAL SUMMARY * No fevers, WBC normalized * Urine Cx: URINE CULTURE Preliminary Organism 1 ENTEROCOCCUS SPECIES COLONY COUNT <10,000 CFU/ml Organism 2 DIPTHEROIDS COLONY COUNT 20,000 - 30,000 CFU/ml EXAM GEN: VSS, no fevers, HEENT: Unremarkable NECK: WNL CVS: RRR, CHEST:Equal chest rise bilaterally, without dyspnea ABD: Soft, NT, EXT: No c/c/e (+)Erythema/edema wrist ID ASSESSMENT 86 yo M admit with: 1. Sepsis with lactic acidosis secondary to cellulitis of the left wrist- improving * Dr. Kent saw the patient on 12/25 and changed ABX to Clinda + Ceftriaxone * Lactic acid & leukocytosis => normalized 2. CKD-> Vanco IV changed to Clindamycin by Dr. Kent on 12/25/16 3. Hypertension 4. Pre-diabetes -A1c 6.2 -Lantus nightly and sliding scale 5. Anemia-likely secondary to anemia of chronic disease 6. Polymicrobial bacteria low colony counts => s/p Vanco IV X1 ( ) MRSA Nares-> in process INVASIVES: PIV CURRENT ABX: Clindamycin #2 + Ceftriaxone #2 s/p Vanco ID RECOMMENDATIONS: 1. Continue current ABX 2. MRSA nares in process 3. MRI LUEXT pending . . Problems: Consultation Date/Type/Reason Admit Date/Time Dec 23, 2016 at 12:09 Initial Consult Date Exam/Review of Systems Vital Signs Vitals Vital Signs Date Time Temp Pulse Resp B/P Pulse Ox O2 Delivery O2 Flow Rate FiO2 12/26/16 14:00 98.6 77 19 138/60 99 12/23/16 23:00 Room Air 12/23/16 12:07 2 Intake and Output 12/25/16 12/25/16 12/26/16 15:00 23:00 07:00 Intake Total 100 ml 1440 ml 1250 ml Balance 100 ml 1440 ml 1250 ml Results Result Diagram: 12/26/16 0506 12/26/16 0506 Results 24 hrs Laboratory Tests Test 12/25/16 20:22 9/4/17 05:06 12/26/16 07:57 12/26/16 11:28 Bedside Glucose 152 118 108 White Blood Count 6.4 # Red Blood Count 3.02 L Hemoglobin 9.0 L Hematocrit 27.1 L Mean Corpuscular Volume 89.7 Mean Corpuscular Hemoglobin 29.8 Mean Corpuscular Hemoglobin Concent 33.2 Red Cell Distribution Width 13.7 Platelet Count 215 Mean Platelet Volume 10.0 Neutrophils % 60.5 Lymphocytes % 23.6 Monocytes % 9.4 Eosinophils % 5.5 Basophils % 0.5 Nucleated Red Blood Cells % 0.0 Neutrophils # (Manual) 3.9 Lymphocytes # 1.5 Monocytes # 0.6 Eosinophils # 0.4 Basophils # 0.0 Nucleated Red Blood Cells # 0.0 Sodium Level 135 Potassium Level 4.7 Chloride Level 106 Carbon Dioxide Level 20 L Anion Gap 14 Blood Urea Nitrogen 29 H Creatinine 1.45 H Glucose Level 120 Calcium Level 8.4 Test 12/26/16 17:09 Bedside Glucose 119 Medications Medications Current Medications Ondansetron HCl (Zofran Inj) 4 mg Q6H PRN IV NAUSEA AND/OR VOMITING; Start 12/23 at 17:00 Acetaminophen (Tylenol Tab) 650 mg Q6H PRN PO PAIN LEVEL 1-3 OR FEVER Last administered on 12/24/16 17:19; Admin Dose 650 MG; Start 12/23/16 at 17:00 Acetaminophen/ Hydrocodone Bitart ([place] (5/325)) 1 tab Q6H PRN PO MODERATE PAIN LEVEL 4-6 Last administered on 12/26/16 15:12; Admin Dose 1 TAB; Start 12/23 at 17:00 Morphine Sulfate (morphine) 2 mg Q4H PRN IV SEVERE PAIN LEVEL 7-10; Start at 17:00 Docusate Sodium (Colace) 100 mg Q12H PRN PO CONSTIPATION; Start 12/23/16 at 17: 00 Magnesium Hydroxide (Milk Of Mag) 30 ml DAILY PRN PO CONSTIPATION; Start at 17:00 Zolpidem Tartrate (Ambien) 5 mg QHS PRN PO SLEEP Last administered on 12/25/16 01:46; Admin Dose 5 MG; Start 12/23/16 at 17:00 Benazepril HCl (Lotensin) 40 mg DAILY PO Last administered on 12/26/16 08:04; Admin Dose 40 MG; Start 12/24/16 at 09:00 Tamsulosin HCl (Flomax) 0.4 mg HS PO Last administered on 12/25/16 20:23; Admin Dose 0.4 MG; Start 12/23/16 at 21:00 Pantoprazole (Protonix Tab) 40 mg DAILY@06 PO Last administered on 12/26/16 05: 28; Admin Dose 40 MG; Start 12/24/16 at 06:00 Diagnostic Test (Pha) (Accu-Chek) 1 ea 02 XX ; Start 12/24/16 at 02:00 Insulin Glargine (Lantus) 10 unit QPM SC Last administered on 12/25/16 20:24; Admin Dose 10 UNIT; Start 12/24/16 at 21:00 Miscellaneous Information 1 ea NOTE XX ; Start 12/24/16 at 20:00 Glucose (Glutose) 15 gm Q15M PRN PO DECREASED GLUCOSE; Start 12/24/16 at 20:00 Glucose (Glutose) 22.5 gm Q15M PRN PO DECREASED GLUCOSE; Start 12/24/16 at 20:00 Dextrose (D50w Syringe) 25 ml Q15M PRN IV DECREASED GLUCOSE; Start 12/24/16 at 20:00 Dextrose (D50w Syringe) 50 ml Q15M PRN IV DECREASED GLUCOSE; Start 12/24/16 at 20:00 Glucagon (Glucagen) 1 mg Q15M PRN IM DECREASED GLUCOSE; Start 12/24/16 at 20:00 Glucose 15 gm 15 gm Q15M PRN BUCCAL DECREASED GLUCOSE; Start 12/24/16 at 20:00 Clindamycin HCl/ Dextrose 50 ml @ 50 mls/hr Q8H IVPB Last administered on 11:28; Admin Dose 50 MLS/HR; Start 12/25/16 at 20:30; Stop 01/01/17 at 21:00 Ceftriaxone Sodium (Rocephin) 50 ml @ 100 mls/hr Q24H IVPB Last administered on 12/25/16 22:46; Admin Dose 100 MLS/HR; Start 12/25/16 at 21:30; Stop 01/01/17 at 12:00 TISH ABRAMS NP Dec 26, 2016 19:54
[2016-12-26 20:02] VITALS: BP 157/70; RESP 18
[2016-12-26] MEDS: TAMSULOSIN (SR) 0.4 MG CAP PO SCH (20:46)
[2016-12-26] MEDS: morphine 2 MG INJ IV PRN (20:46)
[2016-12-26] MEDS: INSULIN GLARGINE [LANtus] 3 ML PEN SC SCH (20:50)
[2016-12-26] MEDS: CEFTRIAXONE 1 GM/50 ML (PMX) 50 ML IVPB SCH (21:47)
[2016-12-27 01:58] VITALS: BP 138/70; PULSE 74; RESP 16
[2016-12-27] MEDS: ACCU-CHEK XX SCH (02:00)
[2016-12-27 02:11] VITALS: BP 152/67; RESP 18
[2016-12-27] MEDS: CLINDAMYCIN 900 MG/D5W (PMX) 50 ML IVPB SCH ×3 (04:47→20:25)
[2016-12-27] MEDS: morphine 2 MG INJ IV PRN (04:48)
[2016-12-27 05:30] LABS: BASOPHILS % 0.4 % (0.0-2.0); EOSINOPHILS # 0.4 10^3/ul (0.0-0.5); HEMATOCRIT 28.2 % (42.0-52.0); LYMPHOCYTES # 1.2 10^3/ul (0.8-2.9); LYMPHOCYTES % 16.5 % (15.0-51.0); MEAN CORPUSCULAR HEMOGLOBIN 28.6 pg (29.0-33.0); MEAN CORPUSCULAR HGB CONC 31.9 g/dl (32.0-37.0); MEAN CORPUSCULAR VOLUME 89.5 fl (82.0-101.0); MEAN PLATELET VOLUME 9.5 fl (7.4-10.4); MONOCYTE # 0.7 10^3/ul (0.3-0.9); MONOCYTES % 10.4 % (0.0-11.0); NEUTROPHILS % 67.4 % (39.0-77.0); PLATELET COUNT 217 10^3/UL (140-415); RED BLOOD COUNT 3.15 10^6/ul (4.70-6.10); RED CELL DISTRIBUTION WIDTH 13.7 % (11.5-14.5); WHITE BLOOD COUNT 7.1 10^3/ul (4.8-10.8)
[2016-12-27 05:43] LABS: ALBUMIN 3.8 g/dl (3.3-4.9); ALBUMIN/GLOBULIN RATIO 1.05; CREATININE 1.59 mg/dl (0.61-1.24); POTASSIUM 5.1 mmol/L (3.5-5.1); TOTAL PROTEIN 7.4 g/dl (6.1-8.1)
[2016-12-27 05:55] LABS: C-REACTIVE PROTEIN 12.8 mg/dl (0.0-0.9)
[2016-12-27] MEDS: PANTOPRAZOLE (EC) 40 MG TAB PO SCH (06:25)
[2016-12-27] MEDS: INSULIN ASPART [NOVOLOG] 3 ML PEN SC SCH ×4 (08:00→20:28)
[2016-12-27] MEDS: BENAZEPRIL 40 MG TAB PO SCH (08:48)
[2016-12-27 08:49] VITALS: BP 185/93; PULSE 82
[2016-12-27] MEDS: ACETAMINOPHEN 325 MG TAB PO PRN (12:06)
[2016-12-27 14:14] VITALS: BP 93/50; RESP 18
--- NOTE | 2016-12-27 14:52 | PN ---
Date/Time of Note Date/Time of Note DATE: 12/27/16 TIME: 14:51 Assessment/Plan VTE Prophylaxis VTE Prophylaxis Intervention: LMWH Lines/Catheters IV Catheter Type (from Nrs): Peripheral IV Urinary Cath still in place: No Assessment/Plan Chief Complaint/Hosp Course 86 yo male with hypertension, cogntiive impairment presenting with pain and swelling of LUE. Being treated for presumed cellulitis Cellulitis: - Improving on abx, continue per ID - MRI pending to assess for MSK injury, fluid collection Cognitive impairment - TSH, B12 labs Hypertension - Continue home meds Discharge to home/self care PT/OT Problems: Subjective 24 Hr Interval Summary Free Text/Dictation Clinically improved since yesterday. Less pain and erythema. Thinks he is improving MRI pending Constitutional: improved, no complaints Exam/Review of Systems Vital Signs Vitals Vital Signs Date Time Temp Pulse Resp B/P Pulse Ox O2 Delivery O2 Flow Rate FiO2 12/27/16 14:14 98.6 90 18 93/50 97 12/27/16 01:58 Room Air 12/23/16 12:07 2 Intake and Output 12/26/16 12/26/16 12/27/16 15:00 23:00 07:00 Intake Total 375 ml 1100 ml 200 ml Balance 375 ml 1100 ml 200 ml Exam Less swelling and erythema to wrist and elbow than yesterday. 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 intact, nl mental status, nl speech, nl strength Skin: nl turgor, No rash or lesions Lymph: nl lymph nodes Results Result Diagram: 12/27/16 0448 12/27/16 0448 Results 24 hrs Laboratory Tests Test 12/26/16 17:09 12/26/16 20:47 12/27/16 04:48 12/27/16 07:58 Bedside Glucose 119 131 104 White Blood Count 7.1 Red Blood Count 3.15 L Hemoglobin 9.0 L Hematocrit 28.2 L Mean Corpuscular Volume 89.5 Mean Corpuscular Hemoglobin 28.6 L Mean Corpuscular Hemoglobin Concent 31.9 L Red Cell Distribution Width 13.7 Platelet Count 217 Mean Platelet Volume 9.5 Neutrophils % 67.4 Lymphocytes % 16.5 Monocytes % 10.4 Eosinophils % 5.0 Basophils % 0.4 Nucleated Red Blood Cells % 0.0 Neutrophils # (Manual) 4.8 Lymphocytes # 1.2 Monocytes # 0.7 Eosinophils # 0.4 Basophils # 0.0 Nucleated Red Blood Cells # 0.0 Sodium Level 139 Potassium Level 5.1 Chloride Level 107 Carbon Dioxide Level 20 L Anion Gap 17 H Blood Urea Nitrogen 32 H Creatinine 1.59 H Glucose Level 108 Calcium Level 9.0 Total Bilirubin 0.0 L Direct Bilirubin 0.00 Indirect Bilirubin 0.0 Aspartate Amino Transf (AST/SGOT) 21 Alanine Aminotransferase (ALT/SGPT) 31 Alkaline Phosphatase 94 C-Reactive Protein 12.8 H Total Protein 7.4 Albumin 3.8 Globulin 3.60 H Albumin/Globulin Ratio 1.05 Test 12/27/16 11:57 Bedside Glucose 144 Medications Medications Current Medications Ondansetron HCl (Zofran Inj) 4 mg Q6H PRN IV NAUSEA AND/OR VOMITING; Start 12/23 at 17:00 Acetaminophen (Tylenol Tab) 650 mg Q6H PRN PO PAIN LEVEL 1-3 OR FEVER Last administered on 12/27/16 12:06; Admin Dose 650 MG; Start 12/23/16 at 17:00 Acetaminophen/ Hydrocodone Bitart ([place] (5/325)) 1 tab Q6H PRN PO MODERATE PAIN LEVEL 4-6 Last administered on 12/26/16 15:12; Admin Dose 1 TAB; Start 12/23 at 17:00 Morphine Sulfate (morphine) 2 mg Q4H PRN IV SEVERE PAIN LEVEL 7-10 Last administered on 12/27/16 04:48; Admin Dose 2 MG; Start 12/23/16 at 17:00 Docusate Sodium (Colace) 100 mg Q12H PRN PO CONSTIPATION; Start 12/23/16 at 17: 00 Magnesium Hydroxide (Milk Of Mag) 30 ml DAILY PRN PO CONSTIPATION; Start at 17:00 Zolpidem Tartrate (Ambien) 5 mg QHS PRN PO SLEEP Last administered on 12/25/16 01:46; Admin Dose 5 MG; Start 12/23/16 at 17:00 Benazepril HCl (Lotensin) 40 mg DAILY PO Last administered on 12/27/16 08:48; Admin Dose 40 MG; Start 12/24/16 at 09:00 Tamsulosin HCl (Flomax) 0.4 mg HS PO Last administered on 12/26/16 20:46; Admin Dose 0.4 MG; Start 12/23/16 at 21:00 Pantoprazole (Protonix Tab) 40 mg DAILY@06 PO Last administered on 12/27/16 06: 25; Admin Dose 40 MG; Start 12/24/16 at 06:00 Diagnostic Test (Pha) (Accu-Chek) 1 ea 02 XX ; Start 12/24/16 at 02:00 Insulin Glargine (Lantus) 10 unit QPM SC Last administered on 12/26/16 20:50; Admin Dose 10 UNIT; Start 12/24/16 at 21:00 Miscellaneous Information 1 ea NOTE XX ; Start 12/24/16 at 20:00 Glucose (Glutose) 15 gm Q15M PRN PO DECREASED GLUCOSE; Start 12/24/16 at 20:00 Glucose (Glutose) 22.5 gm Q15M PRN PO DECREASED GLUCOSE; Start 12/24/16 at 20:00 Dextrose (D50w Syringe) 25 ml Q15M PRN IV DECREASED GLUCOSE; Start 12/24/16 at 20:00 Dextrose (D50w Syringe) 50 ml Q15M PRN IV DECREASED GLUCOSE; Start 12/24/16 at 20:00 Glucagon (Glucagen) 1 mg Q15M PRN IM DECREASED GLUCOSE; Start 12/24/16 at 20:00 Glucose 15 gm 15 gm Q15M PRN BUCCAL DECREASED GLUCOSE; Start 12/24/16 at 20:00 Clindamycin HCl/ Dextrose 50 ml @ 50 mls/hr Q8H IVPB Last administered on 12:14; Admin Dose 50 MLS/HR; Start 12/25/16 at 20:30; Stop 01/01/17 at 21:00 Ceftriaxone Sodium (Rocephin) 50 ml @ 100 mls/hr Q24H IVPB Last administered on 12/26/16t 21:47; Admin Dose 100 MLS/HR; Start 12/25/16 at 21:30; Stop 01/01/17 at 12:00 EDER STANFORD MD Dec 27, 2016 14:52
--- NOTE | 2016-12-27 20:01 | RADRPT ---
PROCEDURE: MRI OF THE LEFT HUMERUS, MRI OF THE LEFT FOREARM WITHOUT CONTRAST. CLINICAL INDICATION: Left forearm pain extending into the mid humerus. Sepsis, cellulitis. TECHNIQUE: Multiple MRI images were obtained utilizing multiple pulse sequences in all three planes of the left humerus. Note that only 1 axial sequence was obtained of the left forearm since the pat ient terminated the study prior to the end of the examination. Images were interpreted on a high res olution PACS system. COMPARISON: None FINDINGS: Forearm: Note that only 1 axial sequence was obtained since the patient terminated the examination prior to the end of the study and evaluation is limited. There is no significant bony destructive ch anges within the radius or ulna although evaluation is limited. No abnormal dark T1 signal is visual ized within the bone marrow of the forearm. Evaluation for soft tissue and muscle edema is also limi sneha since only axial T1-weighted sequences were obtained. Humerus: There is motion artifact on several sequences, slightly limiting evaluation. There is no acute fracture, bone marrow edema, or bony destructive changes within the humerus. There is slight loss of fat saturation on the axial sequences. No aggressive appearing bone lesions are v isualized. There is no evidence of osteomyelitis within the humerus. No sinus tract from the skin to the bone is visualized. There is mild to moderate tendinosis of the distal triceps tendon with mild edema within the triceps muscle, more prominent within the long head on axial images 33 - 36. The remaining muscles around t he humerus are unremarkable. There is no discrete fluid collection to suggest an abscess. There is m ild edema within the subcutaneous soft tissues around the elbow. There is tendinosis of the common extensor tendon with suggestion of a partial tear, limited in eval uation. There is a moderate joint effusion within the elbow. The elbow joint is limited in evaluation but no significant bony destructive changes are present. RPTAT: ZZ IMPRESSION: 1. No acute fracture, stress reaction, or evidence of osteomyelitis within the humerus. 2. Mild to moderate distal triceps tendinosis with mild edema within the triceps muscle. 3. No discrete fluid collection to suggest an abscess. 4. Moderate joint effusion within the elbow. 5. Common extensor tendinosis with suggestion of a partial tear. 6. Nondiagnostic evaluation of the forearm since only 1 sequence was obtained and the patient termin ated the examination prior to the end of the study. .Agueda Gaston MD, MD Date Time Electronically viewed and signed by .Agueda Gaston MD, MD on 12/27/2016 20:00 .T/
[2016-12-27 20:06] VITALS: BP 135/64; RESP 19
[2016-12-27] MEDS: TAMSULOSIN (SR) 0.4 MG CAP PO SCH (20:25)
[2016-12-27] MEDS: INSULIN GLARGINE [LANtus] 3 ML PEN SC SCH (20:29)
[2016-12-27] MEDS: CEFTRIAXONE 1 GM/50 ML (PMX) 50 ML IVPB SCH (21:35)
[2016-12-28] MEDS: ACCU-CHEK XX SCH (01:03)
[2016-12-28 02:11] VITALS: BP 188/78; RESP 18
[2016-12-28] MEDS ORDERED: hydrALAzine 20 MG INJ IV PRN ×2 (02:30)
[2016-12-28] MEDS: CLINDAMYCIN 900 MG/D5W (PMX) 50 ML IVPB SCH ×3 (03:33→20:11)
--- NOTE | 2016-12-28 03:43 | PN ---
DATE: 12/27/2016 SUBJECTIVE DATA: No acute changes. The patient is alert, lying comfortably in bed. Afebrile and in no distress. LAB: WBC 7.1, platelets 217, no shift, no bands. BUN 32, creatinine 1.59. MICROBIOLOGY: Urine culture on admission grew Enterococcus species and Corynebacterium group JK. ANTIMICROBIALS: The patient is on Rocephin and clindamycin. PHYSICAL EXAMINATION: VITALS: Temperature 98.6, pulse 90, respirations 18, blood pressure 93/50, saturation 97 percent on room air. GENERAL: Well-developed, elderly man, who is alert, in no distress. HEENT: Head is atraumatic and normocephalic. Sclerae are anicteric. Buccal mucosa is pink. NECK: Supple. LUNGS: Chest rise is symmetrical. Breath sounds are clear. HEART: S1, S2. ABDOMEN: Soft. Bowel sounds are present. EXTREMITIES: Left wrist erythema. ASSESSMENT: 1. Resolving sepsis with lactic acidosis on admission. 2. Left wrist cellulitis. 3. Polymicrobial urinary tract infection status post vancomycin treatment. 4. Anemia. PLAN: The patient remains stable, overall improving. Pending MRI of the left wrist. Continue left upper extremity elevation. Antibiotics. Dictated By: Naz Cohen NP /delmi/susanna /Document#: [id number]
[2016-12-28 04:13] VITALS: BP 128/77
[2016-12-28] MEDS: PANTOPRAZOLE (EC) 40 MG TAB PO SCH (05:14)
[2016-12-28 07:57] VITALS: BP 130/62; RESP 19
[2016-12-28] MEDS: INSULIN ASPART [NOVOLOG] 3 ML PEN SC SCH ×4 (08:00→21:00)
[2016-12-28] MEDS: BENAZEPRIL 40 MG TAB PO SCH (08:17)
--- NOTE | 2016-12-28 13:57 | PN ---
DATE: 12/28/2016 SUBJECTIVE DATA: Patient is alert, feels better, looks comfortable. No fevers. Left hand looks less swollen and less red. MICROBIOLOGY: Blood cultures remain negative. DIAGNOSTICS: Upper extremity MRI revealed no acute fracture, osteomyelitis, no discrete fluid collection to suggest abscess. Common extensor tendinitis with suggestion of partial tear. ANTIMICROBIALS: The patient is on clindamycin and Rocephin. PHYSICAL EXAMINATION: GENERAL: Well-developed, elderly man, who is alert, in no distress. HEENT: Head atraumatic, normocephalic. Sclerae anicteric. Buccal mucosa pink. NECK: Supple. CHEST: Rise symmetrical. Breath sounds clear. HEART: S1, S2. ABDOMEN: Soft, bowel sounds present. EXTREMITIES: With left wrist and hand decreased swelling and erythema. ASSESSMENT: 1. Status post sepsis with lactic acidosis on admission. 2. Resolving wrist cellulitis, no evidence of osteomyelitis or abscess. 3. Status post mild urinary tract infection. Treated with vancomycin. 4. Anemia. PLAN: 1. The patient remains stable. 2. Improving on current antimicrobials. 3. Continue left upper extremity elevation. 4. Anticipate discharge on oral clindamycin for 7-10 more days. 5. Follow with primary care physician as an outpatient. Dictated By: Naz Cohen NP /delmi/braulio /Document#: [id number]
[2016-12-28 14:32] VITALS: BP 133/63; RESP 18
[2016-12-28] MEDS ORDERED: CLIN-73 PO (14:38)
--- NOTE | 2016-12-28 14:39 | PDOCDIS ---
Discharge Instructions DIAGNOSIS Discharge Diagnosis Cellulitis CONDITION Patient Condition: Good HOME CARE INSTRUCTIONS: Special Diet: carb controlled diet FOLLOW UP/APPOINTMENTS Follow-up Plan Continue your antibiotics as prescribed It is very important that you see your primary doctor within the next 1-2 weeks If your condition worsens or fails to improve, seek medical care EDER STANFORD MD Dec 28, 2016 14:39
--- NOTE | 2016-12-28 14:41 | DS ---
Date/Time of Note Date/Time of Note DATE: 12/28/16 TIME: 14:39 Discharge Summary Admission/Discharge Info Admit Date/Time Dec 23, 2016 at 12:09 Discharge Date/Time Discharge Diagnosis Cellulitis Hx of Present Illness Patient is an 86-year-old male with history of hypertension and non-insulin- requiring diabetes. He does have a history of cellulitis in the right elbow. Patient presents with 2 weeks of worsening swelling and redness in the left wrist. Patient is a poor historian reportedly had to injections in his legs unclear what type. Patient reports pain in the wrist area, he has no complaints this time. Patient denies any IV drug use. Hospital Course 86 yo male with hypertension, cogntiive impairment presenting with pain and swelling of LUE. Being treated for presumed cellulitis He was treated with IV antibiotics and arm elevation. His signs and symptoms of infection improved suggesting that he was being successfuly treated for a bactreial infection. MRI did not show any abscess collection though did show an elbow effusion of unclear etioloyg Patient was discharged to complete a course of clindamycin as an outpatient. He was instructed to follow up wtih his primary doctor in the next 1-2 weeks and to return to medical care if his condition worsens or doesn't resolve Home Meds Active Scripts Clindamycin Hcl* (Clindamycin Hcl*) 300 Mg Capsule, 300 MG PO Q8 for 5 Days, # 15 CAP Prov:EDER STANFORD MD 12/28/16 Reported Medications Meclizine Hcl* (Antivert*) 12.5 Mg Tab, 12.5 MG PO Q8H Y for NAUSEA AND/OR VOMITING, #30 TAB 12/23/16 Omeprazole* (Omeprazole*) 20 Mg Capsule.dr, 20 MG PO DAILY, #30 CAP 12/23/16 Glipizide* (Glipizide*) 10 Mg Tablet, 10 MG PO BID, TAB 12/23/16 Benazepril Hcl* (Benazepril Hcl*) 40 Mg Tablet, 40 MG PO DAILY, #30 TAB 12/23/16 Tamsulosin Hcl* (Tamsulosin Hcl*) 0.4 Mg Cap.er.24h, 0.4 MG PO HS, CAP 12/23/16 Metformin Hcl* (Metformin Hcl*) 1,000 Mg Tablet, 1000 MG PO WITH BREAKFAST DINNE , #30 TAB 12/23/16 Aspirin (Low Dose Aspirin) 81 Mg Tablet.dr, 81 MG PO DAILY, #30 TAB 12/23/16 Discontinued Reported Medications Aspirin* (Aspirin* EC) 325 Mg Tab, 81 MG PO DAILY 05/28/13 Rosuvastatin Calcium* (Crestor*) 10 Mg Tablet, 10 MG PO HS 05/28/13 Omeprazole* (Omeprazole*) 40 Mg Capsule.dr, 40 MG PO DAILY 05/28/13 [place]-3 Fatty Acids (OMEGA-3) 1,000 Mg Capsule, 1000 MG PO BID 05/28/13 Benazepril Hcl* (Lotensin*) 40 Mg Tablet, 5 MG PO DAILY 05/28/13 Primary Care Provider Jacques Medina MD Pending Labs Laboratory Tests Test 12/27/16 17:18 12/27/16 20:27 12/28/16 08:14 12/28/16 12:37 Bedside Glucose 124mg/dL (70-220) 163mg/dL (70-220) 136mg/dL (70-220) 231mg/dL (70-220) EDER STANFORD MD Dec 28, 2016 14:41
--- NOTE | 2016-12-28 16:43 | PN ---
Date/Time of Note Date/Time of Note DATE: 12/28/16 TIME: 16:41 Assessment/Plan VTE Prophylaxis VTE Prophylaxis Intervention: contraindicated Lines/Catheters IV Catheter Type (from Nrsg): Saline Lock Urinary Cath still in place: No Assessment/Plan Chief Complaint/Hosp Course 86 yo male with hypertension, cogntiive impairment presenting with pain and swelling of LUE. Being treated for presumed cellulitis Cellulitis: - Continue clindamycin Elbow effusion w tendon tear: - Perhaps CPPD or gout - Joint tap can be considered - Will give brief NSAIDs, care for CKD CKD III: - Stable, hold KAVITHA for now Needs PT/OT evaluation Discharge plan pending Problems: Subjective 24 Hr Interval Summary Free Text/Dictation Patient still with some pain in elbow and wrist Clinically improved, offered discharge home is worreid about him being unsetady and requests he stay for PT Exam/Review of Systems Vital Signs Vitals Vital Signs Date Time Temp Pulse Resp B/P Pulse Ox O2 Delivery O2 Flow Rate FiO2 12/28/16 14:32 99.1 88 18 133/63 100 12/27/16 01:58 Room Air Intake and Output 12/27/16 12/27/16 12/28/16 14:59 22:59 06:59 Intake Total 50 ml 880 ml 170 ml Balance 50 ml 880 ml 170 ml Exam Constitutional: alert, oriented, well developed Results Result Diagram: 12/27/16 0448 12/27/16 0448 Results 24 hrs Laboratory Tests Test 12/27/16 17:18 12/27/16 20:27 12/28/16 08:14 12/28/16 12:37 Bedside Glucose 124 163 136 231 H Medications Medications Current Medications Ondansetron HCl (Zofran Inj) 4 mg Q6H PRN IV NAUSEA AND/OR VOMITING; Start 12/23 at 17:00 Acetaminophen (Tylenol Tab) 650 mg Q6H PRN PO PAIN LEVEL 1-3 OR FEVER Last administered on 12/27/16 12:06; Admin Dose 650 MG; Start 12/23/16 at 17:00 Acetaminophen/ Hydrocodone Bitart ([place] (5/325)) 1 tab Q6H PRN PO MODERATE PAIN LEVEL 4-6 Last administered on 12/26/16 15:12; Admin Dose 1 TAB; Start 12/23 at 17:00 Morphine Sulfate (morphine) 2 mg Q4H PRN IV SEVERE PAIN LEVEL 7-10 Last administered on 12/27/16 04:48; Admin Dose 2 MG; Start 12/23/16 at 17:00 Docusate Sodium (Colace) 100 mg Q12H PRN PO CONSTIPATION; Start 12/23/16 at 17: 00 Magnesium Hydroxide (Milk Of Mag) 30 ml DAILY PRN PO CONSTIPATION; Start at 17:00 Zolpidem Tartrate (Ambien) 5 mg QHS PRN PO SLEEP Last administered on 12/25/16 01:46; Admin Dose 5 MG; Start 12/23/16 at 17:00 Benazepril HCl (Lotensin) 40 mg DAILY PO Last administered on 12/28/16 08:17; Admin Dose 40 MG; Start 12/24/16 at 09:00 Tamsulosin HCl (Flomax) 0.4 mg HS PO Last administered on 12/27/16 20:25; Admin Dose 0.4 MG; Start 12/23/16 at 21:00 Pantoprazole (Protonix Tab) 40 mg DAILY@06 PO Last administered on 12/28/16 05: 14; Admin Dose 40 MG; Start 12/24/16 at 06:00 Diagnostic Test (Pha) (Accu-Chek) 1 ea 02 XX ; Start 12/24/16 at 02:00 Insulin Glargine (Lantus) 10 unit QPM SC Last administered on 12/27/16 20:29; Admin Dose 10 UNIT; Start 12/24/16 at 21:00 Miscellaneous Information 1 ea NOTE XX ; Start 12/24/16 at 20:00 Glucose (Glutose) 15 gm Q15M PRN PO DECREASED GLUCOSE; Start 12/24/16 at 20:00 Glucose (Glutose) 22.5 gm Q15M PRN PO DECREASED GLUCOSE; Start 12/24/16 at 20:00 Dextrose (D50w Syringe) 25 ml Q15M PRN IV DECREASED GLUCOSE; Start 12/24/16 at 20:00 Dextrose (D50w Syringe) 50 ml Q15M PRN IV DECREASED GLUCOSE; Start 12/24/16 at 20:00 Glucagon (Glucagen) 1 mg Q15M PRN IM DECREASED GLUCOSE; Start 12/24/16 at 20:00 Glucose 15 gm 15 gm Q15M PRN BUCCAL DECREASED GLUCOSE; Start 12/24/16 at 20:00 Clindamycin HCl/ Dextrose 50 ml @ 50 mls/hr Q8H IVPB Last administered on 12:45; Admin Dose 50 MLS/HR; Start 12/25/16 at 20:30; Stop 01/01/17 at 21:00 Ceftriaxone Sodium (Rocephin) 50 ml @ 100 mls/hr Q24H IVPB Last administered on 12/27/16 21:35; Admin Dose 100 MLS/HR; Start 12/25/16 at 21:30; Stop 01/01/17 at 12:00 Ibuprofen (Motrin) 600 mg Q8 PO ; Start 12/28/16 at 17:00 EDER STANFORD MD Dec 28, 2016 16:43
[2016-12-28] MEDS: IBUPROFEN 600 MG TAB PO SCH ×2 (17:29→21:24)
[2016-12-28 20:11] VITALS: BP 126/61; RESP 18
[2016-12-28] MEDS: TAMSULOSIN (SR) 0.4 MG CAP PO SCH (20:17)
[2016-12-28] MEDS: INSULIN GLARGINE [LANtus] 3 ML PEN SC SCH (20:19)
[2016-12-28] MEDS: CEFTRIAXONE 1 GM/50 ML (PMX) 50 ML IVPB SCH (21:24)
[2016-12-29] MEDS: ACCU-CHEK XX SCH (02:00)
[2016-12-29 02:17] VITALS: BP 156/70; RESP 19
[2016-12-29] MEDS: CLINDAMYCIN 900 MG/D5W (PMX) 50 ML IVPB SCH ×3 (03:25→20:16)
[2016-12-29] MEDS: IBUPROFEN 600 MG TAB PO SCH ×2 (05:49→14:35)
[2016-12-29] MEDS: PANTOPRAZOLE (EC) 40 MG TAB PO SCH (05:49)
[2016-12-29 07:00] LABS: URIC ACID 8.5 mg/dl (3.1-7.9)
[2016-12-29] MEDS: INSULIN ASPART [NOVOLOG] 3 ML PEN SC SCH ×5 (08:00→21:00)
[2016-12-29 08:11] VITALS: BP 134/63; RESP 17
[2016-12-29 14:55] VITALS: BP 161/71; RESP 17
--- NOTE | 2016-12-29 16:38 | CONS ---
Date/Time of Note Date/Time of Note DATE: 12/29/16 TIME: 16:36 Assessment/Plan Assessment/Plan Chief Complaint/Hosp Course SUBJECTIVE DATA: No events, looks comfortable, less pain, no fevers MICROBIOLOGY: Blood cultures remain negative. DIAGNOSTICS: Upper extremity MRI revealed no acute fracture, osteomyelitis, no discrete fluid collection to suggest abscess. Common extensor tendinitis with suggestion of partial tear. ANTIMICROBIALS: The patient is on clindamycin and Rocephin. PHYSICAL EXAMINATION: GENERAL: Well-developed, elderly man, who is alert, in no distress. HEENT: Head atraumatic, normocephalic. Sclerae anicteric. Buccal mucosa pink. NECK: Supple. CHEST: Rise symmetrical. Breath sounds clear. HEART: S1, S2. ABDOMEN: Soft, bowel sounds present. EXTREMITIES: With left wrist and hand decreased swelling and erythema. ASSESSMENT: 1. Status post sepsis with lactic acidosis on admission. 2. Resolving wrist cellulitis, no evidence of osteomyelitis or abscess. 3. Status post mild urinary tract infection. Treated with vancomycin. 4. Anemia. PLAN: The patient remains stable. Continue on PO Clindamycin for 7 days, f/u PMD , keep LLE elevated Problems: Consultation Date/Type/Reason Admit Date/Time Dec 23, 2016 at 12:09 Initial Consult Date Type of Consultation: ID Exam/Review of Systems Vital Signs Vitals Vital Signs Date Time Temp Pulse Resp B/P Pulse Ox O2 Delivery O2 Flow Rate FiO2 12/29/16 14:55 97.6 77 17 161/71 98 12/27/16 01:58 Room Air Intake and Output 12/28/16 12/28/16 12/29/16 15:00 23:00 07:00 Intake Total 50 ml 750 ml 450 ml Balance 50 ml 750 ml 450 ml Results Result Diagram: 12/27/16 0448 12/27/16 0448 Results 24 hrs Laboratory Tests Test 12/28/16 17:23 12/28/16 20:16 12/29/16 05:57 12/29/16 07:56 Bedside Glucose 125 180 117 Uric Acid 8.5 H C-Reactive Protein 14.0 H Test 12/29/16 11:57 Bedside Glucose 171 Medications Medications Current Medications Ondansetron HCl (Zofran Inj) 4 mg Q6H PRN IV NAUSEA AND/OR VOMITING; Start 12/23 at 17:00 Acetaminophen (Tylenol Tab) 650 mg Q6H PRN PO PAIN LEVEL 1-3 OR FEVER Last administered on 12/27/16 12:06; Admin Dose 650 MG; Start 12/23/16 at 17:00 Acetaminophen/ Hydrocodone Bitart ([place] (5/325)) 1 tab Q6H PRN PO MODERATE PAIN LEVEL 4-6 Last administered on 12/26/16 15:12; Admin Dose 1 TAB; Start 12/23 at 17:00 Morphine Sulfate (morphine) 2 mg Q4H PRN IV SEVERE PAIN LEVEL 7-10 Last administered on 12/27/16 04:48; Admin Dose 2 MG; Start 12/23/16 at 17:00 Docusate Sodium (Colace) 100 mg Q12H PRN PO CONSTIPATION; Start 12/23/16 at 17: 00 Magnesium Hydroxide (Milk Of Mag) 30 ml DAILY PRN PO CONSTIPATION; Start at 17:00 Zolpidem Tartrate (Ambien) 5 mg QHS PRN PO SLEEP Last administered on 12/25/16 01:46; Admin Dose 5 MG; Start 12/23/16 at 17:00 Tamsulosin HCl (Flomax) 0.4 mg HS PO Last administered on 12/28/16 20:17; Admin Dose 0.4 MG; Start 12/23/16 at 21:00 Pantoprazole (Protonix Tab) 40 mg DAILY@06 PO Last administered on 12/29/16 05: 49; Admin Dose 40 MG; Start 12/24/16 at 06:00 Diagnostic Test (Pha) (Accu-Chek) 1 ea 02 XX ; Start 12/24/16 at 02:00 Insulin Glargine (Lantus) 10 unit QPM SC Last administered on 12/28/16 20:19; Admin Dose 10 UNIT; Start 12/24/16 at 21:00 Miscellaneous Information 1 ea NOTE XX ; Start 12/24/16 at 20:00 Glucose (Glutose) 15 gm Q15M PRN PO DECREASED GLUCOSE; Start 12/24/16 at 20:00 Glucose (Glutose) 22.5 gm Q15M PRN PO DECREASED GLUCOSE; Start 12/24/16 at 20:00 Dextrose (D50w Syringe) 25 ml Q15M PRN IV DECREASED GLUCOSE; Start 12/24/16 at 20:00 Dextrose (D50w Syringe) 50 ml Q15M PRN IV DECREASED GLUCOSE; Start 12/24/16 at 20:00 Glucagon (Glucagen) 1 mg Q15M PRN IM DECREASED GLUCOSE; Start 12/24/16 at 20:00 Glucose 15 gm 15 gm Q15M PRN BUCCAL DECREASED GLUCOSE; Start 12/24/16 at 20:00 Clindamycin HCl/ Dextrose 50 ml @ 50 mls/hr Q8H IVPB Last administered on 12:27; Admin Dose 50 MLS/HR; Start 12/25/16 at 20:30; Stop 01/01/17 at 21:00 Ceftriaxone Sodium (Rocephin) 50 ml @ 100 mls/hr Q24H IVPB Last administered on 12/28/16 21:24; Admin Dose 100 MLS/HR; Start 12/25/16 at 21:30; Stop 01/01/17 at 12:00 Ibuprofen (Motrin) 600 mg Q8 PO Last administered on 12/29/16 14:35; Admin Dose 600 MG; Start 12/28/16 at 17:00 BERHANE MCCRARY NP Dec 29, 2016 16:38
[2016-12-29 16:41] LABS: ALBUMIN 3.8 g/dl (3.3-4.9); ALBUMIN/GLOBULIN RATIO 1.02; CALCIUM 9.2 mg/dl (8.4-10.2); CREATININE 2.05 mg/dl (0.61-1.24); POTASSIUM 5.1 mmol/L (3.5-5.1); TOTAL PROTEIN 7.5 g/dl (6.1-8.1)
--- NOTE | 2016-12-29 19:07 | PN ---
Date/Time of Note Date/Time of Note DATE: 12/29/16 TIME: 19:06 Assessment/Plan VTE Prophylaxis VTE Prophylaxis Intervention: heparin Lines/Catheters IV Catheter Type (from Nrsg): Saline Lock Urinary Cath still in place: No Assessment/Plan Chief Complaint/Hosp Course 86 yo male with hypertension, cogntiive impairment presenting with pain and swelling of LUE. Being treated for presumed cellulitis Cellulitis: - Continue clindamycin Elbow effusion w tendon tear: - Perhaps CPPD or gout - Joint tap can be considered - Will change ibuprofen to colchicine trail ADAM: - Likely from NSAIDs - Will dc all ibuprofen, hold lisinopril CKD III: - Stable, hold KAVITHA for now Needs PT/OT evaluation Discharge plan pending Problems: Subjective 24 Hr Interval Summary Free Text/Dictation Worked with PT, complained of foot pain so didn't do much Elbow/wrist feeling better Exam/Review of Systems Vital Signs Vitals Vital Signs Date Time Temp Pulse Resp B/P Pulse Ox O2 Delivery O2 Flow Rate FiO2 12/29/16 14:55 97.6 77 17 161/71 98 12/27/16 01:58 Room Air Intake and Output 12/28/16 12/28/16 12/29/16 15:00 23:00 07:00 Intake Total 50 ml 750 ml 450 ml Balance 50 ml 750 ml 450 ml Results Result Diagram: 12/27/16 0448 12/29/16 1530 Results 24 hrs Laboratory Tests Test 12/28/16 20:16 12/29/16 05:57 12/29/16 07:56 12/29/16 11:57 Bedside Glucose 180 117 171 Uric Acid 8.5 H C-Reactive Protein 14.0 H Test 12/29/16 15:30 12/29/16 18:13 Sodium Level 138 Potassium Level 5.1 Chloride Level 106 Carbon Dioxide Level 21 Anion Gap 16 Blood Urea Nitrogen 41 H Creatinine 2.05 H Glucose Level 143 Calcium Level 9.2 Total Bilirubin 0.0 L Direct Bilirubin 0.00 Indirect Bilirubin 0.0 Aspartate Amino Transf (AST/SGOT) 20 Alanine Aminotransferase (ALT/SGPT) 23 Alkaline Phosphatase 108 Total Protein 7.5 Albumin 3.8 Globulin 3.70 H Albumin/Globulin Ratio 1.02 Bedside Glucose 170 Medications Medications Current Medications Ondansetron HCl (Zofran Inj) 4 mg Q6H PRN IV NAUSEA AND/OR VOMITING; Start 12/23 at 17:00 Acetaminophen (Tylenol Tab) 650 mg Q6H PRN PO PAIN LEVEL 1-3 OR FEVER Last administered on 12/27/16 12:06; Admin Dose 650 MG; Start 12/23/16 at 17:00 Acetaminophen/ Hydrocodone Bitart ([place] (5/325)) 1 tab Q6H PRN PO MODERATE PAIN LEVEL 4-6 Last administered on 12/26/16 15:12; Admin Dose 1 TAB; Start 12/23 at 17:00 Morphine Sulfate (morphine) 2 mg Q4H PRN IV SEVERE PAIN LEVEL 7-10 Last administered on 12/27/16 04:48; Admin Dose 2 MG; Start 12/23/16 at 17:00 Docusate Sodium (Colace) 100 mg Q12H PRN PO CONSTIPATION; Start 12/23/16 at 17: 00 Magnesium Hydroxide (Milk Of Mag) 30 ml DAILY PRN PO CONSTIPATION; Start at 17:00 Zolpidem Tartrate (Ambien) 5 mg QHS PRN PO SLEEP Last administered on 12/25/16 01:46; Admin Dose 5 MG; Start 12/23/16 at 17:00 Tamsulosin HCl (Flomax) 0.4 mg HS PO Last administered on 12/28/16 20:17; Admin Dose 0.4 MG; Start 12/23/16 at 21:00 Pantoprazole (Protonix Tab) 40 mg DAILY@06 PO Last administered on 12/29/16 05: 49; Admin Dose 40 MG; Start 12/24/16 at 06:00 Diagnostic Test (Pha) (Accu-Chek) 1 ea 02 XX ; Start 12/24/16 at 02:00 Insulin Glargine (Lantus) 10 unit QPM SC Last administered on 12/28/16 20:19; Admin Dose 10 UNIT; Start 12/24/16 at 21:00 Miscellaneous Information 1 ea NOTE XX ; Start 12/24/16 at 20:00 Glucose (Glutose) 15 gm Q15M PRN PO DECREASED GLUCOSE; Start 12/24/16 at 20:00 Glucose (Glutose) 22.5 gm Q15M PRN PO DECREASED GLUCOSE; Start 12/24/16 at 20:00 Dextrose (D50w Syringe) 25 ml Q15M PRN IV DECREASED GLUCOSE; Start 12/24/16 at 20:00 Dextrose (D50w Syringe) 50 ml Q15M PRN IV DECREASED GLUCOSE; Start 12/24/16 at 20:00 Glucagon (Glucagen) 1 mg Q15M PRN IM DECREASED GLUCOSE; Start 12/24/16 at 20:00 Glucose 15 gm 15 gm Q15M PRN BUCCAL DECREASED GLUCOSE; Start 12/24/16 at 20:00 Clindamycin HCl/ Dextrose 50 ml @ 50 mls/hr Q8H IVPB Last administered on 12:27; Admin Dose 50 MLS/HR; Start 12/25/16 at 20:30; Stop 01/01/17 at 21:00 Ceftriaxone Sodium (Rocephin) 50 ml @ 100 mls/hr Q24H IVPB Last administered on 12/28/16 21:24; Admin Dose 100 MLS/HR; Start 12/25/16 at 21:30; Stop 01/01/17 at 12:00 EDER STANFORD MD Dec 29, 2016 19:07
[2016-12-29] MEDS: COLCHICINE 0.6 MG TAB PO SCH (20:16)
[2016-12-29 20:54] VITALS: BP 156/71; RESP 18
[2016-12-29] MEDS: TAMSULOSIN (SR) 0.4 MG CAP PO SCH (21:03)
[2016-12-29] MEDS: INSULIN GLARGINE [LANtus] 3 ML PEN SC SCH (21:08)
[2016-12-29] MEDS: CEFTRIAXONE 1 GM/50 ML (PMX) 50 ML IVPB SCH (21:37)
[2016-12-30] MEDS: ACCU-CHEK XX SCH (02:00)
[2016-12-30 02:49] VITALS: BP 153/67; RESP 18
[2016-12-30] MEDS: CLINDAMYCIN 900 MG/D5W (PMX) 50 ML IVPB SCH ×2 (04:28→12:15)
[2016-12-30] MEDS: PANTOPRAZOLE (EC) 40 MG TAB PO SCH (06:21)
[2016-12-30 06:41] LABS: BASOPHILS % 0.5 % (0.0-2.0); EOSINOPHILS # 0.3 10^3/ul (0.0-0.5); EOSINOPHILS % 4.3 % (0.0-7.0); HEMOGLOBIN 9.7 g/dl (14.0-18.0); LYMPHOCYTES # 1.1 10^3/ul (0.8-2.9); LYMPHOCYTES % 13.8 % (15.0-51.0); MEAN CORPUSCULAR HEMOGLOBIN 29.6 pg (29.0-33.0); MEAN CORPUSCULAR HGB CONC 33.4 g/dl (32.0-37.0); MEAN CORPUSCULAR VOLUME 88.4 fl (82.0-101.0); MEAN PLATELET VOLUME 9.9 fl (7.4-10.4); MONOCYTE # 0.8 10^3/ul (0.3-0.9); MONOCYTES % 9.9 % (0.0-11.0); NEUTROPHILS % 70.9 % (39.0-77.0); PLATELET COUNT 259 10^3/UL (140-415); RED BLOOD COUNT 3.28 10^6/ul (4.70-6.10); RED CELL DISTRIBUTION WIDTH 14.1 % (11.5-14.5); WHITE BLOOD COUNT 7.9 10^3/ul (4.8-10.8)
[2016-12-30 07:14] LABS: ALBUMIN/GLOBULIN RATIO 1.05; CALCIUM 9.1 mg/dl (8.4-10.2); CREATININE 1.73 mg/dl (0.61-1.24); POTASSIUM 5.4 mmol/L (3.5-5.1); TOTAL PROTEIN 7.8 g/dl (6.1-8.1)
[2016-12-30 08:00] VITALS: BP 140/76; RESP 20
[2016-12-30] MEDS: COLCHICINE 0.6 MG TAB PO SCH (08:02)
[2016-12-30] MEDS: INSULIN ASPART [NOVOLOG] 3 ML PEN SC SCH ×4 (08:05→20:24)
[2016-12-30 14:00] VITALS: BP 138/80; RESP 20
--- NOTE | 2016-12-30 16:21 | CONS ---
Date/Time of Note Date/Time of Note DATE: 12/30/16 TIME: 16:19 Assessment/Plan Assessment/Plan Chief Complaint/Hosp Course SUBJECTIVE DATA: No events, awake looks comfortable, no fevers MICROBIOLOGY: Blood cultures remain negative. DIAGNOSTICS: Upper extremity MRI revealed no acute fracture, osteomyelitis, no discrete fluid collection to suggest abscess. Common extensor tendinitis with suggestion of partial tear. ANTIMICROBIALS: Clindamycin, s/p Rocephin . PHYSICAL EXAMINATION: GENERAL: Well-developed, elderly man, who is alert, in no distress. HEENT: Head atraumatic, normocephalic. Sclerae anicteric. Buccal mucosa pink. NECK: Supple. CHEST: Rise symmetrical. Breath sounds clear. HEART: S1, S2. ABDOMEN: Soft, bowel sounds present. EXTREMITIES: With left wrist and hand decreased swelling and erythema. ASSESSMENT: 1. Status post sepsis with lactic acidosis on admission. 2. Resolving L wrist cellulitis, no evidence of osteomyelitis or abscess. 3. Status post mild urinary tract infection. Treated with vancomycin. 4. Anemia. PLAN: The patient remains stable. 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 Problems: Consultation Date/Type/Reason Admit Date/Time Dec 23, 2016 at 12:09 Type of Consultation: ID Exam/Review of Systems Vital Signs Vitals Vital Signs Date Time Temp Pulse Resp B/P Pulse Ox O2 Delivery O2 Flow Rate FiO2 12/30/16 08:00 98.6 84 20 140/76 96 12/27/16 01:58 Room Air Intake and Output 12/29/16 12/29/16 12/30/16 15:00 23:00 07:00 Intake Total 50 ml 580 ml 700 ml Balance 50 ml 580 ml 700 ml Results Result Diagram: 12/30/16 0556 12/30/16 0556 Results 24 hrs Laboratory Tests Test 12/29/16 18:13 12/29/16 21:06 12/30/16 05:56 12/30/16 07:41 Bedside Glucose 170 175 157 White Blood Count 7.9 Red Blood Count 3.28 L Hemoglobin 9.7 L Hematocrit 29.0 L Mean Corpuscular Volume 88.4 Mean Corpuscular Hemoglobin 29.6 Mean Corpuscular Hemoglobin Concent 33.4 Red Cell Distribution Width 14.1 Platelet Count 259 Mean Platelet Volume 9.9 Neutrophils % 70.9 Lymphocytes % 13.8 L Monocytes % 9.9 Eosinophils % 4.3 Basophils % 0.5 Nucleated Red Blood Cells % 0.0 Neutrophils # (Manual) 5.6 Lymphocytes # 1.1 Monocytes # 0.8 Eosinophils # 0.3 Basophils # 0.0 Nucleated Red Blood Cells # 0.0 Sodium Level 139 Potassium Level 5.4 H Chloride Level 108 Carbon Dioxide Level 18 L Anion Gap 18 H Blood Urea Nitrogen 42 H Creatinine 1.73 H Glucose Level 170 Calcium Level 9.1 Total Bilirubin 0.0 L Direct Bilirubin 0.00 Indirect Bilirubin 0.0 Aspartate Amino Transf (AST/SGOT) 25 Alanine Aminotransferase (ALT/SGPT) 27 Alkaline Phosphatase 108 Total Protein 7.8 Albumin 4.0 Globulin 3.80 H Albumin/Globulin Ratio 1.05 Test 12/30/16 12:00 Bedside Glucose 146 Medications Medications Current Medications Ondansetron HCl (Zofran Inj) 4 mg Q6H PRN IV NAUSEA AND/OR VOMITING; Start 12/23 at 17:00 Acetaminophen (Tylenol Tab) 650 mg Q6H PRN PO PAIN LEVEL 1-3 OR FEVER Last administered on 12/27/16 12:06; Admin Dose 650 MG; Start 12/23/16 at 17:00 Acetaminophen/ Hydrocodone Bitart ([place] (5/325)) 1 tab Q6H PRN PO MODERATE PAIN LEVEL 4-6 Last administered on 12/26/16 15:12; Admin Dose 1 TAB; Start 12/23 at 17:00 Morphine Sulfate (morphine) 2 mg Q4H PRN IV SEVERE PAIN LEVEL 7-10 Last administered on 12/27/16 04:48; Admin Dose 2 MG; Start 12/23/16 at 17:00 Docusate Sodium (Colace) 100 mg Q12H PRN PO CONSTIPATION; Start 12/23/16 at 17: 00 Magnesium Hydroxide (Milk Of Mag) 30 ml DAILY PRN PO CONSTIPATION; Start at 17:00 Zolpidem Tartrate (Ambien) 5 mg QHS PRN PO SLEEP Last administered on 12/25/16 01:46; Admin Dose 5 MG; Start 12/23/16 at 17:00 Tamsulosin HCl (Flomax) 0.4 mg HS PO Last administered on 12/29/16 21:03; Admin Dose 0.4 MG; Start 12/23/16 at 21:00 Pantoprazole (Protonix Tab) 40 mg DAILY@06 PO Last administered on 12/30/16 06: 21; Admin Dose 40 MG; Start 12/24/16 at 06:00 Diagnostic Test (Pha) (Accu-Chek) 1 ea 02 XX ; Start 12/24/16 at 02:00 Insulin Glargine (Lantus) 10 unit QPM SC Last administered on 12/29/16 21:08; Admin Dose 10 UNIT; Start 12/24/16 at 21:00 Miscellaneous Information 1 ea NOTE XX ; Start 12/24/16 at 20:00 Glucose (Glutose) 15 gm Q15M PRN PO DECREASED GLUCOSE; Start 12/24/16 at 20:00 Glucose (Glutose) 22.5 gm Q15M PRN PO DECREASED GLUCOSE; Start 12/24/16 at 20:00 Dextrose (D50w Syringe) 25 ml Q15M PRN IV DECREASED GLUCOSE; Start 12/24/16 at 20:00 Dextrose (D50w Syringe) 50 ml Q15M PRN IV DECREASED GLUCOSE; Start 12/24/16 at 20:00 Glucagon (Glucagen) 1 mg Q15M PRN IM DECREASED GLUCOSE; Start 12/24/16 at 20:00 Glucose 15 gm 15 gm Q15M PRN BUCCAL DECREASED GLUCOSE; Start 12/24/16 at 20:00 Clindamycin HCl/ Dextrose (Cleocin 900 Mg/ D5W (Pmx)) 50 ml @ 50 mls/hr Q8H IVPB Last administered on 12/30/16 12:15; Admin Dose 50 MLS/HR; Start 12/25/16 at 20:30; Stop 01/01/17 at 21:00 Colchicine (Colchicine) 0.3 mg DAILY PO Last administered on 12/30/16 08:02; Admin Dose 0.3 MG; Start 12/29/16 at 19:30 BERHANE MCCRARY NP Dec 30, 2016 16:21
[2016-12-30 20:08] VITALS: BP 161/56; RESP 18
[2016-12-30] MEDS: predniSONE 50 MG TAB PO SCH (20:21)
[2016-12-30] MEDS: HYDROCODONE/APAP (5/325) TAB PO PRN (20:22)
[2016-12-30] MEDS: TAMSULOSIN (SR) 0.4 MG CAP PO SCH (20:22)
[2016-12-30] MEDS: GABAPENTIN 100 MG CAP PO SCH (20:22)
[2016-12-30] MEDS: INSULIN GLARGINE [LANtus] 3 ML PEN SC SCH (20:23)
[2016-12-30 21:30] VITALS: BP 168/77; PULSE 69
[2016-12-30] MEDS ORDERED: hydrALAzine 20 MG INJ IV PRN (22:00)
[2016-12-30 22:30] VITALS: BP 137/65; PULSE 64
[2016-12-30] MEDS: CLINDAMYCIN 300 MG CAP PO SCH (22:37)
[2016-12-31] MEDS ORDERED: POLYETHYLENE GLYCOL 17 GM PACKET PO PRN (01:00)
[2016-12-31] MEDS ORDERED: BISACODYL 10 MG SUPP PR PRN (01:00)
[2016-12-31] MEDS: ACCU-CHEK XX SCH (01:57)
[2016-12-31 02:59] VITALS: BP 157/59; RESP 21
[2016-12-31] MEDS: CLINDAMYCIN 300 MG CAP PO SCH ×4 (05:16→21:00)
[2016-12-31] MEDS: PANTOPRAZOLE (EC) 40 MG TAB PO SCH ×2 (05:16→08:43)
[2016-12-31 08:00] VITALS: BP 149/86; RESP 18
[2016-12-31] MEDS: predniSONE 50 MG TAB PO SCH (08:48)
[2016-12-31] MEDS: GABAPENTIN 100 MG CAP PO SCH ×3 (08:48→20:57)
[2016-12-31] MEDS: INSULIN ASPART [NOVOLOG] 3 ML PEN SC SCH ×4 (08:48→20:59)
[2016-12-31] MEDS: COLCHICINE 0.6 MG TAB PO SCH (08:48)
[2016-12-31 14:00] VITALS: BP 136/72; RESP 18
--- NOTE | 2016-12-31 16:50 | PN ---
Date/Time of Note Date/Time of Note DATE: 12/30/16 TIME: 16:48 Assessment/Plan VTE Prophylaxis VTE Prophylaxis Intervention: LMWH Lines/Catheters IV Catheter Type (from Nrsg): Saline Lock Urinary Cath still in place: No Assessment/Plan Chief Complaint/Hosp Course 86 yo male with hypertension, cogntiive impairment presenting with pain and swelling of LUE. Treated for presumed cellulitis. 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 Cellulitis: - S/p abx, resolved Wrist, elbow, foot pain - Perhaps CPPD or gout - Colchicine trial so far not much benefit - Will try prednsione burst ADAM: - Likely from NSAIDs - Will dc all ibuprofen, hold lisinopril CKD III: - Stable, hold KAVITHA for now Needs PT/OT evaluation Discharge plan pending Problems: Subjective 24 Hr Interval Summary Free Text/Dictation Continue pain in his feet and wrist, unable to do PT as a result is concerned about his ability to return home givne inability to walk Exam/Review of Systems Vital Signs Vitals Vital Signs Date Time Temp Pulse Resp B/P Pulse Ox O2 Delivery O2 Flow Rate FiO2 12/31/16 08:00 98.6 83 18 149/86 96 Intake and Output 12/30/16 12/30/16 12/31/16 15:00 23:00 07:00 Intake Total 50 ml 560 ml 250 ml Balance 50 ml 560 ml 250 ml Exam Appears well Wrist with mild synovitis perhaps, tender to palpation Feet without concerning findigns Constitutional: alert, oriented, well developed Psych: nl mood/affect, no complaints Head: atraumatic, normocephalic Eyes: EOMI, PERRL, nl conjunctiva, nl lids, nl sclera ENMT: nl external ears & nose, nl lips & teeth, nl nasal mucosa & septum Neck: non-tender, supple Respiratory: clear to auscultation, normal air movement Cardiovascular: nl pulses, regular rate and rhythm Gastrointestinal: nl liver, spleen, non-tender, soft Musculoskeletal: nl extremities to inspection, nl gait and stance Extremities: normal pulses Neurological: 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, nl mental status, nl speech, nl strength Skin: nl turgor, No rash or lesions Lymph: nl lymph nodes Results Result Diagram: 12/30/16 0556 12/30/16 0556 Results 24 hrs Laboratory Tests Test 12/30/16 17:29 12/30/16 20:19 12/31/16 01:54 12/31/16 07:44 Bedside Glucose 166 217 204 220 Test 12/31/16 11:58 Bedside Glucose 225 H Medications Medications Current Medications Ondansetron HCl (Zofran Inj) 4 mg Q6H PRN IV NAUSEA AND/OR VOMITING; Start 12/23 at 17:00 Acetaminophen (Tylenol Tab) 650 mg Q6H PRN PO PAIN LEVEL 1-3 OR FEVER Last administered on 12/27/16 12:06; Admin Dose 650 MG; Start 12/23/16 at 17:00 Acetaminophen/ Hydrocodone Bitart ([place] (5/325)) 1 tab Q6H PRN PO MODERATE PAIN LEVEL 4-6 Last administered on 12/30/16 20:22; Admin Dose 1 TAB; Start 12/23 at 17:00 Morphine Sulfate (morphine) 2 mg Q4H PRN IV SEVERE PAIN LEVEL 7-10 Last administered on 12/27/16 04:48; Admin Dose 2 MG; Start 12/23/16 at 17:00 Docusate Sodium (Colace) 100 mg Q12H PRN PO CONSTIPATION Last administered on 20:23; Admin Dose 100 MG; Start 12/23/16 at 17:00 Magnesium Hydroxide (Milk Of Mag) 30 ml DAILY PRN PO CONSTIPATION Last administered on 12/30/16 20:23; Admin Dose 30 ML; Start 12/23/16 at 17:00 Zolpidem Tartrate (Ambien) 5 mg QHS PRN PO SLEEP Last administered on 12/25/16 01:46; Admin Dose 5 MG; Start 12/23/16 at 17:00 Tamsulosin HCl (Flomax) 0.4 mg HS PO Last administered on 12/30/16 20:22; Admin Dose 0.4 MG; Start 12/23/16 at 21:00 Pantoprazole (Protonix Tab) 40 mg DAILY@06 PO Last administered on 12/31/16 08: 43; Admin Dose 40 MG; Start 12/24/16 at 06:00 Diagnostic Test (Pha) (Accu-Chek) 1 ea 02 XX Last administered on 12/31/16 01: 57; Admin Dose 1 EA; Start 12/24/16 at 02:00 Insulin Glargine (Lantus) 10 unit QPM SC Last administered on 12/30/16 20:23; Admin Dose 10 UNIT; Start 12/24/16 at 21:00 Miscellaneous Information 1 ea NOTE XX ; Start 12/24/16 at 20:00 Glucose (Glutose) 15 gm Q15M PRN PO DECREASED GLUCOSE; Start 12/24/16 at 20:00 Glucose (Glutose) 22.5 gm Q15M PRN PO DECREASED GLUCOSE; Start 12/24/16 at 20:00 Dextrose (D50w Syringe) 25 ml Q15M PRN IV DECREASED GLUCOSE; Start 12/24/16 at 20:00 Dextrose (D50w Syringe) 50 ml Q15M PRN IV DECREASED GLUCOSE; Start 12/24/16 at 20:00 Glucagon (Glucagen) 1 mg Q15M PRN IM DECREASED GLUCOSE; Start 12/24/16 at 20:00 Glucose (Glutose) 15 gm Q15M PRN BUCCAL DECREASED GLUCOSE; Start 12/24/16 at 20: 00 Colchicine (Colchicine) 0.3 mg DAILY PO Last administered on 12/31/16 08:48; Admin Dose 0.3 MG; Start 12/29/16 at 19:30 Clindamycin HCl (Cleocin) 300 mg Q8 PO Last administered on 12/31/16 13:39; Admin Dose 300 MG; Start 12/30/16 at 22:00 Gabapentin (Neurontin) 100 mg TID PO Last administered on 12/31/16 12:12; Admin Dose 100 MG; Start 12/30/16 at 21:00 Prednisone (Prednisone) 50 mg DAILY PO Last administered on 12/31/16 08:48; Admin Dose 50 MG; Start 12/30/16 at 18:30 Bisacodyl (Dulcolax Supp) 10 mg DAILY PRN [place] CONSTIPATION; Start 12/31/16 at 01: 00 Polyethylene Glycol (Miralax) 17 gm DAILY PRN PO CONSTIPATION; Start 12/31/16 at 01:00 EEDR STANFORD MD Dec 31, 2016 16:50
--- NOTE | 2016-12-31 16:51 | PN ---
Date/Time of Note Date/Time of Note DATE: 12/31/16 TIME: 16:50 Assessment/Plan VTE Prophylaxis VTE Prophylaxis Intervention: LMWH Lines/Catheters IV Catheter Type (from Nrsg): Saline Lock Urinary Cath still in place: No Assessment/Plan Chief Complaint/Hosp Course 86 yo male with hypertension, cogntiive impairment presenting with pain and swelling of LUE. Treated for presumed cellulitis. 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 Cellulitis: - S/p abx, resolved Wrist, elbow, foot pain - Perhaps CPPD or gout - Colchicine trial so far not much benefit - Will try prednsione burst ADAM: - Likely from NSAIDs - Will dc all ibuprofen, hold lisinopril CKD III: - Stable, hold KAVITHA for now Needs PT/OT evaluation Discharge plan pending Problems: Subjective 24 Hr Interval Summary Free Text/Dictation Still pain in feet Exam/Review of Systems Vital Signs Vitals Vital Signs Date Time Temp Pulse Resp B/P Pulse Ox O2 Delivery O2 Flow Rate FiO2 12/31/16 08:00 98.6 83 18 149/86 96 Intake and Output 12/30/16 12/30/16 12/31/16 15:00 23:00 07:00 Intake Total 50 ml 560 ml 250 ml Balance 50 ml 560 ml 250 ml Exam Constitutional: alert, oriented, well developed Psych: nl mood/affect, no complaints Head: atraumatic, normocephalic Eyes: EOMI, PERRL, nl conjunctiva, nl lids, nl sclera ENMT: nl external ears & nose, nl lips & teeth, nl nasal mucosa & septum Neck: non-tender, supple Respiratory: clear to auscultation, normal air movement Cardiovascular: nl pulses, regular rate and rhythm Gastrointestinal: nl liver, spleen, non-tender, soft Musculoskeletal: nl extremities to inspection, nl gait and stance Extremities: normal pulses Neurological: 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 intact, nl mental status, nl speech, nl strength Skin: nl turgor, No rash or lesions Lymph: nl lymph nodes Results Result Diagram: 12/30/16 0556 12/30/16 0556 Results 24 hrs Laboratory Tests Test 12/30/16 17:29 12/30/16 20:19 12/31/16 01:54 12/31/16 07:44 Bedside Glucose 166 217 204 220 Test 12/31/16 11:58 Bedside Glucose 225 H Medications Medications Current Medications Ondansetron HCl (Zofran Inj) 4 mg Q6H PRN IV NAUSEA AND/OR VOMITING; Start 12/23 at 17:00 Acetaminophen (Tylenol Tab) 650 mg Q6H PRN PO PAIN LEVEL 1-3 OR FEVER Last administered on 12/27/16 12:06; Admin Dose 650 MG; Start 12/23/16 at 17:00 Acetaminophen/ Hydrocodone Bitart ([place] (5/325)) 1 tab Q6H PRN PO MODERATE PAIN LEVEL 4-6 Last administered on 12/30/16 20:22; Admin Dose 1 TAB; Start 12/23 at 17:00 Morphine Sulfate (morphine) 2 mg Q4H PRN IV SEVERE PAIN LEVEL 7-10 Last administered on 12/27/16 04:48; Admin Dose 2 MG; Start 12/23/16 at 17:00 Docusate Sodium (Colace) 100 mg Q12H PRN PO CONSTIPATION Last administered on 20:23; Admin Dose 100 MG; Start 12/23/16 at 17:00 Magnesium Hydroxide (Milk Of Mag) 30 ml DAILY PRN PO CONSTIPATION Last administered on 12/30/16 20:23; Admin Dose 30 ML; Start 12/23/16 at 17:00 Zolpidem Tartrate (Ambien) 5 mg QHS PRN PO SLEEP Last administered on 12/25/16 01:46; Admin Dose 5 MG; Start 12/23/16 at 17:00 Tamsulosin HCl (Flomax) 0.4 mg HS PO Last administered on 12/30/16 20:22; Admin Dose 0.4 MG; Start 12/23/16 at 21:00 Pantoprazole (Protonix Tab) 40 mg DAILY@06 PO Last administered on 12/31/16 08: 43; Admin Dose 40 MG; Start 12/24/16 at 06:00 Diagnostic Test (Pha) (Accu-Chek) 1 ea 02 XX Last administered on 12/31/16 01: 57; Admin Dose 1 EA; Start 12/24/16 at 02:00 Insulin Glargine (Lantus) 10 unit QPM SC Last administered on 12/30/16 20:23; Admin Dose 10 UNIT; Start 12/24/16 at 21:00 Miscellaneous Information 1 ea NOTE XX ; Start 12/24/16 at 20:00 Glucose (Glutose) 15 gm Q15M PRN PO DECREASED GLUCOSE; Start 12/24/16 at 20:00 Glucose (Glutose) 22.5 gm Q15M PRN PO DECREASED GLUCOSE; Start 12/24/16 at 20:00 Dextrose (D50w Syringe) 25 ml Q15M PRN IV DECREASED GLUCOSE; Start 12/24/16 at 20:00 Dextrose (D50w Syringe) 50 ml Q15M PRN IV DECREASED GLUCOSE; Start 12/24/16 at 20:00 Glucagon (Glucagen) 1 mg Q15M PRN IM DECREASED GLUCOSE; Start 12/24/16 at 20:00 Glucose (Glutose) 15 gm Q15M PRN BUCCAL DECREASED GLUCOSE; Start 12/24/16 at 20: 00 Colchicine (Colchicine) 0.3 mg DAILY PO Last administered on 12/31/16 08:48; Admin Dose 0.3 MG; Start 12/29/16 at 19:30 Clindamycin HCl (Cleocin) 300 mg Q8 PO Last administered on 12/31/16 13:39; Admin Dose 300 MG; Start 12/30/16 at 22:00 Gabapentin (Neurontin) 100 mg TID PO Last administered on 12/31/16 12:12; Admin Dose 100 MG; Start 12/30/16 at 21:00 Prednisone (Prednisone) 50 mg DAILY PO Last administered on 12/31/16 08:48; Admin Dose 50 MG; Start 12/30/16 at 18:30 Bisacodyl (Dulcolax Supp) 10 mg DAILY PRN [place] CONSTIPATION; Start 12/31/16 at 01: 00 Polyethylene Glycol (Miralax) 17 gm DAILY PRN PO CONSTIPATION; Start 12/31/16 at 01:00 EDER STANFORD MD Dec 31, 2016 16:51
--- NOTE | 2016-12-31 16:51 | PN ---
Date/Time of Note Date/Time of Note DATE: 12/30/16 TIME: 16:51 Assessment/Plan VTE Prophylaxis VTE Prophylaxis Intervention: LMWH Lines/Catheters IV Catheter Type (from Nrsg): Saline Lock Urinary Cath still in place: No Assessment/Plan Chief Complaint/Hosp Course 86 yo male with hypertension, cogntiive impairment presenting with pain and swelling of LUE. Treated for presumed cellulitis. 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 Cellulitis: - S/p abx, resolved Wrist, elbow, foot pain - Perhaps CPPD or gout - Colchicine trial so far not much benefit - Will try prednsione burst ADAM: - Likely from NSAIDs - Will dc all ibuprofen, hold lisinopril CKD III: - Stable, hold KAVITHA for now Needs PT/OT evaluation Discharge plan pending Problems: Exam/Review of Systems Vital Signs Vitals Vital Signs Date Time Temp Pulse Resp B/P Pulse Ox O2 Delivery O2 Flow Rate FiO2 12/31/16 08:00 98.6 83 18 149/86 96 Intake and Output 12/30/16 12/30/16 12/31/16 15:00 23:00 07:00 Intake Total 50 ml 560 ml 250 ml Balance 50 ml 560 ml 250 ml Results Result Diagram: 12/30/16 0556 12/30/16 0556 Results 24 hrs Laboratory Tests Test 12/30/16 17:29 12/30/16 20:19 12/31/16 01:54 12/31/16 07:44 Bedside Glucose 166 217 204 220 Test 12/31/16 11:58 Bedside Glucose 225 H Medications Medications Current Medications Ondansetron HCl (Zofran Inj) 4 mg Q6H PRN IV NAUSEA AND/OR VOMITING; Start 12/23 at 17:00 Acetaminophen (Tylenol Tab) 650 mg Q6H PRN PO PAIN LEVEL 1-3 OR FEVER Last administered on 12/27/16 12:06; Admin Dose 650 MG; Start 12/23/16 at 17:00 Acetaminophen/ Hydrocodone Bitart (Rosebud (5/325)) 1 tab Q6H PRN PO MODERATE PAIN LEVEL 4-6 Last administered on 12/30/16 20:22; Admin Dose 1 TAB; Start 12/23 at 17:00 Morphine Sulfate (morphine) 2 mg Q4H PRN IV SEVERE PAIN LEVEL 7-10 Last administered on 12/27/16 04:48; Admin Dose 2 MG; Start 12/23/16 at 17:00 Docusate Sodium (Colace) 100 mg Q12H PRN PO CONSTIPATION Last administered on 20:23; Admin Dose 100 MG; Start 12/23/16 at 17:00 Magnesium Hydroxide (Milk Of Mag) 30 ml DAILY PRN PO CONSTIPATION Last administered on 12/30/16 20:23; Admin Dose 30 ML; Start 12/23/16 at 17:00 Zolpidem Tartrate (Ambien) 5 mg QHS PRN PO SLEEP Last administered on 12/25/16 01:46; Admin Dose 5 MG; Start 12/23/16 at 17:00 Tamsulosin HCl (Flomax) 0.4 mg HS PO Last administered on 12/30/16 20:22; Admin Dose 0.4 MG; Start 12/23/16 at 21:00 Pantoprazole (Protonix Tab) 40 mg DAILY@06 PO Last administered on 12/31/16 08: 43; Admin Dose 40 MG; Start 12/24/16 at 06:00 Diagnostic Test (Pha) (Accu-Chek) 1 ea 02 XX Last administered on 12/31/16 01: 57; Admin Dose 1 EA; Start 12/24/16 at 02:00 Insulin Glargine (Lantus) 10 unit QPM SC Last administered on 12/30/16 20:23; Admin Dose 10 UNIT; Start 12/24/16 at 21:00 Miscellaneous Information 1 ea NOTE XX ; Start 12/24/16 at 20:00 Glucose (Glutose) 15 gm Q15M PRN PO DECREASED GLUCOSE; Start 12/24/16 at 20:00 Glucose (Glutose) 22.5 gm Q15M PRN PO DECREASED GLUCOSE; Start 12/24/16 at 20:00 Dextrose (D50w Syringe) 25 ml Q15M PRN IV DECREASED GLUCOSE; Start 12/24/16 at 20:00 Dextrose (D50w Syringe) 50 ml Q15M PRN IV DECREASED GLUCOSE; Start 12/24/16 at 20:00 Glucagon (Glucagen) 1 mg Q15M PRN IM DECREASED GLUCOSE; Start 12/24/16 at 20:00 Glucose (Glutose) 15 gm Q15M PRN BUCCAL DECREASED GLUCOSE; Start 12/24/16 at 20: 00 Colchicine (Colchicine) 0.3 mg DAILY PO Last administered on 12/31/16 08:48; Admin Dose 0.3 MG; Start 12/29/16 at 19:30 Clindamycin HCl (Cleocin) 300 mg Q8 PO Last administered on 12/31/16 13:39; Admin Dose 300 MG; Start 12/30/16 at 22:00 Gabapentin (Neurontin) 100 mg TID PO Last administered on 12/31/16 12:12; Admin Dose 100 MG; Start 12/30/16 at 21:00 Prednisone (Prednisone) 50 mg DAILY PO Last administered on 12/31/16 08:48; Admin Dose 50 MG; Start 12/30/16 at 18:30 Bisacodyl (Dulcolax Supp) 10 mg DAILY PRN NM CONSTIPATION; Start 12/31/16 at 01: 00 Polyethylene Glycol (Miralax) 17 gm DAILY PRN PO CONSTIPATION; Start 12/31/16 at 01:00 EDER STANFORD MD Dec 31, 2016 16:51
--- NOTE | 2016-12-31 18:04 | PN ---
DATE: 12/31/2016 SUBJECTIVE DATA: No acute events overnight. The patient is alert, looks comfortable. Denies pain. No fevers. Left hand looks much better with decreased erythema, swelling completely resolved. ANTIMICROBIALS: Clindamycin 300 mg q.8 hours PHYSICAL EXAMINATION: GENERAL: A well-developed, fragile, elderly man, who is awake, in no distress. HEENT: Head atraumatic, normocephalic. Sclerae anicteric. NECK: Supple. CHEST: Rise symmetrical. Breath sounds clear. HEART: S1, S2. ABDOMEN: Soft, bowel sounds present. EXTREMITIES: With left hand resolving edema and erythema. ASSESSMENT: 1. Status post sepsis on admission. 2. Resolving left hand cellulitis. 3. Anemia. 4. Status post urinary tract infection. PLAN: The patient remains stable. Continue present care. Complete antibiotics. Pending discharge planning. Dictated By: Naz Cohen NP /delmi/flor /Document#: [id number]
[2016-12-31 20:43] VITALS: BP 140/60; RESP 18
[2016-12-31] MEDS: TAMSULOSIN (SR) 0.4 MG CAP PO SCH (20:57)
[2016-12-31] MEDS ORDERED: INSULIN GLARGINE [LANtus] 3 ML PEN SC SCH (21:00)
[2017-01-01] MEDS: ACCU-CHEK XX SCH (01:50)
[2017-01-01 03:47] VITALS: BP 138/62; RESP 18
[2017-01-01] MEDS: PANTOPRAZOLE (EC) 40 MG TAB PO SCH (05:26)
[2017-01-01] MEDS: CLINDAMYCIN 300 MG CAP PO SCH ×2 (05:26→13:37)
[2017-01-01 05:58] LABS: BASOPHILS % 0.1 % (0.0-2.0); EOSINOPHILS % 0.1 % (0.0-7.0); HEMOGLOBIN 9.2 g/dl (14.0-18.0); LYMPHOCYTES # 1.5 10^3/ul (0.8-2.9); LYMPHOCYTES % 10.9 % (15.0-51.0); MEAN CORPUSCULAR HEMOGLOBIN 29.1 pg (29.0-33.0); MEAN CORPUSCULAR HGB CONC 32.9 g/dl (32.0-37.0); MEAN CORPUSCULAR VOLUME 88.6 fl (82.0-101.0); MEAN PLATELET VOLUME 9.2 fl (7.4-10.4); MONOCYTE # 1.2 10^3/ul (0.3-0.9); MONOCYTES % 8.7 % (0.0-11.0); NEUTROPHILS % 79.5 % (39.0-77.0); PLATELET COUNT 387 10^3/UL (140-415); RED BLOOD COUNT 3.16 10^6/ul (4.70-6.10); RED CELL DISTRIBUTION WIDTH 13.7 % (11.5-14.5); WHITE BLOOD COUNT 13.9 10^3/ul (4.8-10.8)
[2017-01-01 06:29] LABS: ALBUMIN 3.6 g/dl (3.3-4.9); ALBUMIN/GLOBULIN RATIO 1.02; CALCIUM 9.1 mg/dl (8.4-10.2); CREATININE 1.8 mg/dl (0.61-1.24); POTASSIUM 5.6 mmol/L (3.5-5.1); TOTAL PROTEIN 7.1 g/dl (6.1-8.1)
[2017-01-01] MEDS: INSULIN ASPART [NOVOLOG] 3 ML PEN SC SCH ×3 (08:00→17:45)
[2017-01-01 08:18] VITALS: BP 149/66; RESP 20
[2017-01-01] MEDS: predniSONE 50 MG TAB PO SCH (09:50)
[2017-01-01] MEDS: GABAPENTIN 100 MG CAP PO SCH ×2 (09:50→13:37)
[2017-01-01] MEDS: COLCHICINE 0.6 MG TAB PO SCH (09:50)
[2017-01-01] MEDS ORDERED: morphine (ER) 15 MG TAB PO SCH (11:30)
[2017-01-01 14:30] VITALS: BP 172/77; RESP 20
[2017-01-01 14:35] VITALS: BP 153/61; PULSE 66
[2017-01-01] MEDS ORDERED: PRED20TA PO (17:44)
== END 2017-01-01 18:55 | disposition home or self-care (01) | DRG 872 ==
LOC: E/R 10:43 → PP2 12:09
PROVIDERS: ADMIT Hospitalist; ATTEND Hospitalist
DX: A41.9 Sepsis, unspecified organism (principal); N17.9 Acute kidney failure, unspecified; E87.2 Acidosis; E11.22 Type 2 diabetes mellitus with diabetic chronic kidney disease; N39.0 Urinary tract infection, site not specified; L03.114 Cellulitis of left upper limb; I12.9 Hypertensive chronic kidney disease with stage 1 through stage 4 chronic kidney disease, or unspecified chronic kidney disease; B95.2 Enterococcus as the cause of diseases classified elsewhere; N18.3 Chronic kidney disease, stage 3 (moderate); D63.8 Anemia in other chronic diseases classified elsewhere; G31.84 Mild cognitive impairment of uncertain or unknown etiology; M25.422 Effusion, left elbow; M13.0 Polyarthritis, unspecified
CPT/HCPCS: 36415; 71010; 73223; 80048; 80053; 80061; 81001; 82962; 83036; 83605; 83735; 84100; 84484; 84560; 85025; 85610; 85730; 86140; 87040; 87081; 87086; 93005; 96365; 96366; 96368; 97163; 97530; J0360; J0692; J0696; J1815; J2270; J3370; J7030; J7512